=== PATIENT | male | born 1940 | race Caucasian/White ===

== ENCOUNTER → 2017-10-01 10:06 | Outpatient (CLI) | payer MEDICARE, SELFPAY ==
[2017-10-01 12:22] LABS: Anion Gap 7 (5-15); BUN 17 mg/dL (7-18); BUN/Creat Ratio 14.9 RATIO (10-20); Chloride 105 mmol/L (98-107); Creatinine, Serum 1.14 mg/dL (0.70-1.30); EST Glomerular Filtration Rate 67 mL/min (>60); Est Glom Filt Rate - Afr Amer 80 mL/min (>60); Glucose 204 mg/dL (70-110); Potassium 4.1 mmol/L (3.5-5.1); Sodium Level 139 mmol/L (136-145); Thyroid Stim Hormone (TSH) 1.83 uIU/mL (0.358-3.74)
[2017-10-01 12:24] LABS: Absolute Lymphocyte Count 1.22 X10^3/ul (0.83-4.51); Absolute Neutrophil Count 3.7 X10^3/uL (2.0-7.7); Basophil# 0.02 X10^3/uL; Basophil% 0.3 % (0-1); Eosinophil# 0.33 X10^3/uL; Eosinophils% 5.5 % (0-5); Hemoglobin 15.3 g/dl (13.0-16.5); Lymphocyte # 1.22 X10^3/ul (4.0); Lymphocyte % 20.3 % (19-41); Mean Corp Hgb Conc 33.3 g/gl (32-36); Mean Corpuscular Hgb 30.2 pg (27.0-32.0); Mean Corpuscular Volume 90.9 fL (80-94); Mean Platelet Vol. 11.4 fl (6.2-12.0); Monocyte# 0.73 X10^3/uL; Monocyte% 12.2 % (0-10); Neutrophil % 61.7 % (47-70); Platelet Count 221 K/mm3 (150-450); RBC Distribution Width CV 13.1 % (11.6-14.6); RBC Distribution Width SD 43.1 fl (35.1-43.9); Red Blood Count 5.06 M/mm3 (4.6-6.2)
[2017-10-01 12:31] LABS: POSITIVE COUNT NO; POSITIVE DIFFERENTIAL NO; POSITIVE MORPHOLOGY NO
[2017-10-01 12:33] LABS: AST(SGOT) 24 U/L (15-37); Alanine Aminotransfer ALT/SGPT 37 U/L (16-61); Albumin, Serum 3.6 g/dL (3.2-5.0); Alkaline Phosphatase 49 U/L (45-117); Bilirubin, Direct 0.21 mg/dL (0.00-0.30); Cholesterol 117 mg/dL (200); Globulin 3.4 g/dL (2.2-4.2); High Density Lipoprotein 37 mg/dL; Triglycerides 128 mg/dL; Very Low Density Lipoprotein 26 mg/dL (5-40)
== END ==
PROVIDERS: Family Provider Family Medicine; PCP Family Medicine; Visit Provider Internal Medicine Cardiovascular Disease
DX: E78.5 Hyperlipidemia, unspecified (principal); I10 Essential (primary) hypertension; E11.9 Type 2 diabetes mellitus without complications; Z79.899 Other long term (current) drug therapy
CPT/HCPCS: 36415; 80048; 80061; 80076; 84443; 85025

== ENCOUNTER → 2018-04-02 09:17 | Outpatient (CLI) | payer MEDICARE, SELFPAY ==
[2018-04-02 12:27] LABS: AST(SGOT) 24 U/L (15-37); Alanine Aminotransfer ALT/SGPT 27 U/L (16-61); Albumin, Serum 3.5 g/dL (3.2-5.0); Alkaline Phosphatase 43 U/L (45-117); Bilirubin, Direct 0.18 mg/dL (0.00-0.30); Cholesterol 108 mg/dL (200); Globulin 3.3 g/dL (2.2-4.2); High Density Lipoprotein 37 mg/dL; Protein, Total 6.8 g/dL (6.4-8.2); Triglycerides 115 mg/dL; Very Low Density Lipoprotein 23 mg/dL (5-40)
== END ==
PROVIDERS: Family Provider Family Medicine; PCP Family Medicine; Visit Provider Internal Medicine Cardiovascular Disease
DX: E78.5 Hyperlipidemia, unspecified (principal); Z79.899 Other long term (current) drug therapy
CPT/HCPCS: 36415; 80061; 80076

== ENCOUNTER → 2018-06-23 15:38 | Outpatient (CLI) | payer MEDICARE, SELFPAY ==
[2018-06-23 17:42] LABS: Absolute Lymphocyte Count 1.35 X10^3/ul (0.83-4.51); Absolute Neutrophil Count 4.2 X10^3/uL (2.0-7.7); Basophil# 0.01 X10^3/uL; Basophil% 0.2 % (0-1); Eosinophil# 0.19 X10^3/uL; Eosinophils% 2.9 % (0-5); Hematocrit 44.4 % (40-54); Hemoglobin 14.3 g/dl (13.0-16.5); Lymphocyte # 1.35 X10^3/ul (4.0); Lymphocyte % 20.8 % (19-41); Mean Corp Hgb Conc 32.2 g/gl (32-36); Mean Corpuscular Hgb 30.2 pg (27.0-32.0); Mean Corpuscular Volume 93.7 fL (80-94); Mean Platelet Vol. 10.6 fl (6.2-12.0); Monocyte# 0.69 X10^3/uL; Monocyte% 10.6 % (0-10); Neutrophil # 4.24 X10^3/uL (2.7-7.7); Neutrophil % 65.3 % (47-70); Platelet Count 232 K/mm3 (150-450); RBC Distribution Width CV 13.3 % (11.6-14.6); RBC Distribution Width SD 45.6 fl (35.1-43.9); Red Blood Count 4.74 M/mm3 (4.6-6.2); White Blood Count 6.5 K/mm3 (4.4-11.0)
[2018-06-23 17:46] LABS: POSITIVE COUNT NO; POSITIVE DIFFERENTIAL NO; POSITIVE MORPHOLOGY NO
[2018-06-23 18:29] LABS: Anion Gap 7 (5-15); BUN 16 mg/dL (7-18); BUN/Creat Ratio 15.5 RATIO (10-20); Calcium,Total 8.7 mg/dL (8.5-10.1); Chloride 104 mmol/L (98-107); Creatinine, Serum 1.03 mg/dL (0.70-1.30); EST Glomerular Filtration Rate 75 mL/min (>60); Est Glom Filt Rate - Afr Amer 90 mL/min (>60); Glucose 142 mg/dL (74-106); Potassium 4.2 mmol/L (3.5-5.1); Sodium Level 139 mmol/L (136-145)
== END ==
PROVIDERS: Visit Provider Family Medicine
DX: I10 Essential (primary) hypertension (principal); E11.65 Type 2 diabetes mellitus with hyperglycemia
CPT/HCPCS: 36415; 80048; 84443; 85025

== ENCOUNTER → 2019-02-17 | Outpatient (CLI) | payer MEDICARE, SELFPAY ==
[2018-10-20 15:37] VITALS: BMI 32.5
[2019-02-17 12:36] LABS: Absolute Lymphocyte Count 1.13 X10^3/ul (0.83-4.51); Absolute Neutrophil Count 3.6 X10^3/uL (2.0-7.7); Basophil# 0.01 X10^3/uL; Basophil% 0.2 % (0-1); Eosinophil# 0.16 X10^3/uL; Eosinophils% 2.8 % (0-5); Hematocrit 44.3 % (40-54); Lymphocyte # 1.13 X10^3/ul (4.0); Lymphocyte % 20.1 % (19-41); Mean Corp Hgb Conc 33.9 g/gl (32-36); Mean Corpuscular Hgb 30.3 pg (27.0-32.0); Mean Corpuscular Volume 89.5 fL (80-94); Mean Platelet Vol. 10.8 fl (6.2-12.0); Monocyte# 0.75 X10^3/uL; Monocyte% 13.3 % (0-10); Neutrophil # 3.56 X10^3/uL (2.7-7.7); Neutrophil % 63.4 % (47-70); Platelet Count 214 K/mm3 (150-450); RBC Distribution Width CV 13.1 % (11.6-14.6); RBC Distribution Width SD 42.6 fl (35.1-43.9); Red Blood Count 4.95 M/mm3 (4.6-6.2); White Blood Count 5.6 K/mm3 (4.4-11.0)
[2019-02-17 12:44] LABS: POSITIVE COUNT NO; POSITIVE DIFFERENTIAL NO; POSITIVE MORPHOLOGY NO
[2019-02-17 13:03] LABS: AST(SGOT) 29 U/L (15-37); Alanine Aminotransfer ALT/SGPT 33 U/L (16-61); Albumin, Serum 3.6 g/dL (3.2-5.0); Alkaline Phosphatase 48 U/L (45-117); Anion Gap 9 (5-15); BUN 19 mg/dL (7-18); BUN/Creat Ratio 19.5 RATIO (10-20); Bilirubin, Direct 0.17 mg/dL (0.00-0.30); Chloride 104 mmol/L (98-107); Cholesterol 139 mg/dL (200); Creatinine, Serum 0.97 mg/dL (0.70-1.30); EST Glomerular Filtration Rate 80 mL/min (>60); Est Glom Filt Rate - Afr Amer 96 mL/min (>60); Globulin 3.3 g/dL (2.2-4.2); Glucose 191 mg/dL (74-106); High Density Lipoprotein 43 mg/dL; Potassium 4.3 mmol/L (3.5-5.1); Protein, Total 6.9 g/dL (6.4-8.2); Sodium Level 136 mmol/L (136-145); Thyroid Stim Hormone (TSH) 1.83 uIU/mL (0.358-3.74); Triglycerides 119 mg/dL; Very Low Density Lipoprotein 24 mg/dL (5-40)
== END | disposition home or self-care (01) ==
PROVIDERS: Family Provider Family Medicine; PCP Family Medicine; Visit Provider Internal Medicine Cardiovascular Disease
DX: I10 Essential (primary) hypertension (principal); R00.1 Bradycardia, unspecified; E78.5 Hyperlipidemia, unspecified
CPT/HCPCS: 36415; 80048; 80061; 80076; 84443; 85025

== ENCOUNTER 2019-04-05 12:05 | Emergency (ER) | payer MEDICARE, SELFPAY ==
[2018-10-20 15:37] VITALS: BMI 32.5
[2019-04-05 12:05] VITALS: BP 150/69; PULSE 59; RESP 18; TEMP 36.4; O2SAT 94; BMI 33.0
--- NOTE | 2019-04-05 12:38 | RAD_ITS ---
STUDY: X-RAY - LUMBAR SPINE REASON FOR EXAM: Male, 78 years old. Back pain radiating to the right leg, acute onset TECHNIQUE: 3 view(s) of the lumbar spine were obtained. COMPARISON: None FINDINGS: Normal lumbar lordosis. There is no substantial scoliosis. There is a normal alignment of the vertebrae. There is diffuse demineralization with multi-level endplate spondylosis. Mild disc space narrowing at L5-S1 with moderate facet arthropathy noted. There is no demonstrated fracture. There is atherosclerotic calcification of the abdominal aorta without a demonstrated aneurysm. RAD/Lumbar Spine 2 or 3 Views IMPRESSION: 1. Mild degenerative changes. No compression fracture. Electronically Signed: Salvatore Avila MD at 13:10 EDT , Service support ,
--- NOTE | 2019-04-05 12:39 | ED.VIS.GEN ---
History of Present Illness Chief Complaint: Back Informant: Patient Onset: Yesterday Current Severity: Mild Narrative: Study of CABG and see list, basically reports is been very good health yesterday he was carrying a jug of water bending over repetitively to water objects, he began having pain to the right paralumbar back the pain intensified today where he is very stiff and could not really move well he had no direct trauma no abdominal pain no numbness weakness paresthesias, he has had intermittent flareups of back pain related to prior football type injuries that usually resolve, he is on Coumadin, his INR is about 2.3 he is had no GI bleeding no chest pain fever cough no numbness weakness or paresthesias just stiffness related to the back pain Past Medical History - Allergies and Home Meds Allergies/Adverse Reactions: Allergies No Known Allergies Allergy (Verified 04/05/19 12:07) Primary Care Physician: Logan Castillo MD [Primary Care Provider] - Past Medical History: - Smoking Status: Former smoker Review of Systems ROS: - Bridge and as above General: Denies: Chills, Fever, Sweats Eyes: Denies: Visual changes - bilaterally, Diplopia ENT: Denies: Rhinorrhea, Sore throat Cardiovascular: Denies: Chest pain, Palpitations Respiratory: Denies: Dyspnea, Cough, Dyspnea on exertion Gastrointestinal: Denies: Abdominal pain, Nausea, Vomiting, Diarrhea, Melena, Hematochezia Genitourinary: Denies: Dysuria, Hematuria, Frequency Musculoskeletal: Reports: - - He points directly to the right paralumbar musculature area of pain this area is mildly tender midline back is nontender is no real rashes or lesions he has full range of motion of his lower extremities no numbness weeks paresthesias no perineal anesthesia no signs of cauda equina. Denies: Back pain, Extremity Pain Skin: Denies: Rash, Wounds Neurological: Denies: Headache, Weakness, Numbness Physical Exam Vital Signs/Narrative: Vital Signs Temp Pulse Resp BP Pulse Ox 04/05/19 12:05 97.6 F L 59 L 18 150/69 H 94 General: Well nourished, Well developed, No Acute Distress Head: Normocephalic, Atraumatic Eyes: Perrl, EOMI ENT: Moist mucous membranes, No rhinorrhea Neck: Supple, Nontender Cardiovascular: Regular rate, Regular rhythm, No murmurs Respiratory: No distress, CTA bilaterally, Chest nontender Abdomen: Soft, Nontender, Nondistended, Normal bowel sounds Back: Nontender, Normal Inspection, - - See above Extremities: Nontender, No edema Skin: Normal color, No rash Neurological: Alert, Oriented x3, Cranial nerves II-XII grossly intact, Normal Strength, Normal Sensation Psychological: Normal affect, Normal Mood Diagnostic/Tx/Re-eval - Medical Decision Making Given all the above x-rays were obtained Parkman for pain X-rays per radiology show DJD nothing acute discussed all the above the patient was times comfortable going home Tylenol for pain Parkman as a rescue medicine to follow-up as outpatient providers as I explained he might require further management with back specialist etc. return for any signs of cauda equina numbness or paresthesias Home stable Final impression Acute right paralumbar back strain history of CABG Coumadin therapy ED Disposition - Plan for ED Patient: Diagnosis: Back pain Instructions: BACK SPASM, No Trauma, Back Sprain/Strain Prescriptions: Hydrocodone Bitart/Apap 5-325 [Parkman 5MG-325MG] 1 tab PO Q4H PRN PRN 2 Days #10 tab PRN Reason: Pain Prescription Printed Referrals: Logan Castillo MD [Primary Care Provider] -
[2019-04-05] MEDS: HYDROcodone Bitartrate/Apap 5/325 Tablet PO (12:44)
[2019-04-05] MEDS: Ondansetron ODT 4 MG Tablet 8 MG PO (12:44)
[2019-04-05 13:58] VITALS: PULSE 60; RESP 16
== END 2019-04-05 13:58 | disposition home or self-care (01) ==
LOC: ED 12:42
PROVIDERS: Emergency Provider Emergency Medicine; Family Provider Family Medicine; PCP Family Medicine
DX: S39.012A Strain of muscle, fascia and tendon of lower back, initial encounter (principal); Z95.1 Presence of aortocoronary bypass graft; Z79.01 Long term (current) use of anticoagulants; Z87.891 Personal history of nicotine dependence; X50.0XXA Overexertion from strenuous movement or load, initial encounter; Y93.89 Activity, other specified; Y92.007 Garden or yard of unspecified non-institutional (private) residence as the place of occurrence of the external cause; Y99.8 Other external cause status
CPT/HCPCS: 72100; 99283

== ENCOUNTER → 2019-05-05 | Outpatient (CLI) | payer MEDICARE, SELFPAY ==
[2019-04-23 14:17] VITALS: BMI 32.1
--- NOTE | 2019-05-05 11:33 | STRESSREP_ITS ---
Stress Test Report Date: 05-05-19 Procedure: Pharmacologic stress nuclear imaging study Indications: CAD; CABG; hyperlipidemia; hypertension Consent: Per the patient Procedure: The patient underwent pharmacologic (Regadenoson) evaluation with a peak heart rate of 93 beats per minute (65 %predicted maximal heart rate) and a peak blood pressure of 198/94 mmHg. The baseline ECG demonstrated sinus bradycardia. The peak pharmacologic ECG demonstrated no obvious ECG changes. There were no cardiac dysrhythmias pretest, during pharmacologic infusion, or recovery. There was no complaint of chest discomfort during pharmacologic infusion or recovery. The examination was discontinued secondary to completion of protocol. Impression: 1. Pharmacologic (Regadenoson) evaluation 2. Peak pharmacologic ECG with no obvious ECG changes. 3. There were no cardiac dysrhythmias pretest, during pharmacologic infusion, or recovery. 4. Nuclear images pending Myocardial perfusion imaging study: Technique: The patient was injected with 14.8 millicuries of technetium 99m Cardiolite and subsequently rest SPECT Cardiolite nuclear imaging was obtained in the horizontal long, vertical long, and short axis views. The patient underwent pharmacologic (Regadenoson) evaluation with a peak heart rate of 93 beats per minute (65 % percent predicted maximal heart rate) and a peak blood pressure of 198/94 mmHg. The patient was injected with 44.5 millicuries of technetium 99m Cardiolite and subsequently stress SPECT Cardiolite nuclear imaging was obtained in the horizontal long, vertical long, and short axis views. A gated Cardiolite study at peak stress was obtained. Interpretation: Rest and stress SPECT Cardiolite nuclear imaging status post realignment, normalization, and attenuation correction demonstrate relative uniform tracer uptake and myocardial perfusion appearing within normal limits. There is end systolic thickening and brightening. The gated Cardiolite study demonstrates myocardial thickening and inward wall motion. The reported LVEF is 62 %. Impression: 1. Rest and stress SPECT Cardiolite nuclear imaging demonstrate relative un iform tracer uptake and myocardial perfusion appearing within normal limits. 2. The gated Cardiolite study reports an LVEF of 62 %. This note was generated with [employer] software. It may contain incorrect words, spelling, and punctuation that were not noted in checking the note before signing.
== END | disposition home or self-care (01) ==
LOC: CVS 06:45
PROVIDERS: Family Provider Family Medicine; PCP Family Medicine; Referring Provider Physician Assistant Medical; Visit Provider Physician Assistant Medical
DX: I25.10 Atherosclerotic heart disease of native coronary artery without angina pectoris (principal); I10 Essential (primary) hypertension; E78.5 Hyperlipidemia, unspecified
CPT/HCPCS: 78452; 93017; A9500; A4216; J2785

== ENCOUNTER → 2020-02-16 | Outpatient (CLI) | payer MEDICARE, SELFPAY ==
[2020-01-21 13:09] VITALS: BMI 32.1
[2020-02-16 08:59] LABS: AST(SGOT) 31 U/L (15-37); Alanine Aminotransfer ALT/SGPT 32 U/L (16-61); Albumin, Serum 3.6 g/dL (3.2-5.0); Alkaline Phosphatase 48 U/L (45-117); Anion Gap 9 (5-15); BUN 18 mg/dL (7-18); BUN/Creat Ratio 17.8 RATIO (10-20); Bilirubin, Direct 0.22 mg/dL (0.00-0.30); Calcium,Total 8.9 mg/dL (8.5-10.1); Chloride 105 mmol/L (98-107); Cholesterol 122 mg/dL (200); Creatinine, Serum 1.01 mg/dL (0.70-1.30); EST Glomerular Filtration Rate 76 mL/min (>60); Est Glom Filt Rate - Afr Amer 92 mL/min (>60); Globulin 3.4 g/dL (2.2-4.2); Glucose 129 mg/dL (74-106); High Density Lipoprotein 37 mg/dL; Potassium 3.6 mmol/L (3.5-5.1); Sodium Level 141 mmol/L (136-145); Triglycerides 118 mg/dL; Very Low Density Lipoprotein 24 mg/dL (5-40)
== END | disposition home or self-care (01) ==
LOC: LAB 08:09
PROVIDERS: PCP Family Medicine; Referring Provider Internal Medicine Cardiovascular Disease; Visit Provider Internal Medicine Cardiovascular Disease
DX: E78.5 Hyperlipidemia, unspecified (principal); I10 Essential (primary) hypertension; I25.10 Atherosclerotic heart disease of native coronary artery without angina pectoris; Z95.1 Presence of aortocoronary bypass graft
CPT/HCPCS: 36415; 80048; 80061; 80076

== ENCOUNTER → 2020-04-11 09:16 | Outpatient (CLI) | payer MEDICARE, SELFPAY ==
[2020-01-21 13:09] VITALS: BMI 32.1
[2020-04-11 12:53] LABS: Absolute Lymphocyte Count 1.24 X10^3/uL (0.83-4.51); Absolute Neutrophil Count 3.8 X10^3/uL (2.0-7.7); Basophil# 0.03 X10^3/uL; Basophil% 0.5 % (0-1); Eosinophil# 0.21 X10^3/uL; Eosinophils% 3.6 % (0-5); Hematocrit 44.1 % (40-54); Hemoglobin 14.4 g/dL (13.0-16.5); Lymphocyte # 1.24 X10^3/ul (4.0); Lymphocyte % 21.1 % (19-41); Mean Corp Hgb Conc 32.7 g/dL (32-36); Mean Corpuscular Hgb 30.8 pg (27.0-32.0); Mean Corpuscular Volume 94.4 fL (80-94); Mean Platelet Vol. 11.1 fl (6.2-12.0); Monocyte# 0.61 X10^3/uL; Monocyte% 10.4 % (0-10); NRBC Flagged by Analyzer 0 % (0-5); Neutrophil # 3.78 X10^3/uL (2.7-7.7); Neutrophil % 64.1 % (47-70); Platelet Count 252 K/mm3 (150-450); RBC Distribution Width CV 12.8 % (11.6-14.6); Red Blood Count 4.67 M/mm3 (4.6-6.2); White Blood Count 5.9 K/mm3 (4.4-11.0)
[2020-04-11 13:30] LABS: AST(SGOT) 20 U/L (15-37); Alanine Aminotransfer ALT/SGPT 23 U/L (16-61); Albumin, Serum 3.4 g/dL (3.2-5.0); Alkaline Phosphatase 45 U/L (45-117); Anion Gap 5 (5-15); BUN 16 mg/dL (7-18); Calcium,Total 9.1 mg/dL (8.5-10.1); Chloride 107 mmol/L (98-107); EST Glomerular Filtration Rate 77 mL/min (>60); Est Glom Filt Rate - Afr Amer 93 mL/min (>60); Globulin 3.4 g/dL (2.2-4.2); Glucose 133 mg/dL (74-106); Potassium 4.2 mmol/L (3.5-5.1); Protein, Total 6.8 g/dL (6.4-8.2); Sodium Level 140 mmol/L (136-145); Thyroid Stim Hormone (TSH) 1.77 uIU/mL (0.358-3.74)
[2020-04-13 11:52] LABS: Hemoglobin A1c 8.8 % (3.8-5.6)
== END ==
PROVIDERS: PCP Family Medicine; Visit Provider Family Medicine
DX: E11.65 Type 2 diabetes mellitus with hyperglycemia (principal); I10 Essential (primary) hypertension
CPT/HCPCS: 36415; 80053; 83036; 84443; 85025

== ENCOUNTER → 2020-10-14 11:05 | Outpatient (CLI) | payer MEDICARE, SELFPAY ==
[2020-06-13 11:23] VITALS: BMI 32.1
[2020-10-14 15:51] LABS: Vitamin B12 163 pg/mL (211-911)
[2020-10-14 16:00] LABS: AST(SGOT) 18 U/L (15-37); Alanine Aminotransfer ALT/SGPT 25 U/L (16-61); Albumin, Serum 3.4 g/dL (3.2-5.0); Alkaline Phosphatase 60 U/L (45-117); Anion Gap 5 (5-15); BUN 16 mg/dL (7-18); BUN/Creat Ratio 15.8 RATIO (10-20); Chloride 104 mmol/L (98-107); Cholesterol 119 mg/dL (200); Creatinine, Serum 1.01 mg/dL (0.70-1.30); EST Glomerular Filtration Rate 76 mL/min (>60); Est Glom Filt Rate - Afr Amer 92 mL/min (>60); Globulin 3.4 g/dL (2.2-4.2); Glucose 185 mg/dL (74-106); High Density Lipoprotein 40 mg/dL; Potassium 4.3 mmol/L (3.5-5.1); Protein, Total 6.8 g/dL (6.4-8.2); Sodium Level 136 mmol/L (136-145); Thyroid Stim Hormone (TSH) 1.53 uIU/mL (0.358-3.74); Triglycerides 96 mg/dL; Very Low Density Lipoprotein 19 mg/dL (5-40)
== END ==
PROVIDERS: PCP Family Medicine; Visit Provider Family Medicine
DX: I10 Essential (primary) hypertension (principal); E11.65 Type 2 diabetes mellitus with hyperglycemia; F03.90 Unspecified dementia, unspecified severity, without behavioral disturbance, psychotic disturbance, mood disturbance, and anxiety
CPT/HCPCS: 36415; 80053; 80061; 82607; 84443

== ENCOUNTER → 2020-11-04 10:58 | Outpatient (CLI) | payer MEDICARE, SELFPAY ==
[2020-06-13 11:23] VITALS: BMI 32.1
[2020-11-04 15:02] LABS: Prothrombin Time (Protime)PT. 22.4 SECONDS (11.7-14.9)
== END ==
PROVIDERS: PCP Family Medicine; Visit Provider Family Medicine
DX: D68.59 Other primary thrombophilia (principal); I82.409 Acute embolism and thrombosis of unspecified deep veins of unspecified lower extremity
CPT/HCPCS: 36415; 85610

== ENCOUNTER → 2021-08-30 09:33 | Outpatient (CLI) | payer MEDICARE, SELFPAY ==
[2021-08-30 12:24] LABS: Absolute Lymphocyte Count 1.34 X10^3/uL (0.83-4.51); Absolute Neutrophil Count 4.3 X10^3/uL (2.0-7.7); Basophil# 0.04 X10^3/uL; Basophil% 0.6 % (0-1); Hematocrit 44.1 % (40-54); Hemoglobin 14.5 g/dL (13.0-16.5); Lymphocyte # 1.34 X10^3/ul (0.83-4.51); Lymphocyte % 20.4 % (19-41); Mean Corp Hgb Conc 32.9 g/dL (32-36); Mean Corpuscular Hgb 30.7 pg (27.0-32.0); Mean Corpuscular Volume 93.4 fL (80-94); Monocyte# 0.71 X10^3/uL; Monocyte% 10.8 % (0-10); NRBC Flagged by Analyzer 0 % (0-5); Neutrophil # 4.26 X10^3/uL (2.7-7.7); Neutrophil % 64.9 % (47-70); Platelet Count 248 K/mm3 (150-450); RBC Distribution Width CV 12.4 % (11.6-14.6); RBC Distribution Width SD 42.5 fl (35.1-43.9); Red Blood Count 4.72 M/mm3 (4.6-6.2); White Blood Count 6.6 K/mm3 (4.4-11.0)
[2021-08-30 12:41] LABS: Vitamin B12 1633 pg/mL (211-911)
[2021-08-30 12:45] LABS: AST(SGOT) 19 U/L (15-37); Alanine Aminotransfer ALT/SGPT 31 U/L (16-61); Albumin, Serum 3.5 g/dL (3.2-5.0); Alkaline Phosphatase 56 U/L (45-117); Anion Gap 9 (5-15); BUN 17 mg/dL (7-18); BUN/Creat Ratio 17.6 RATIO (10-20); Calcium,Total 8.8 mg/dL (8.5-10.1); Chloride 105 mmol/L (98-107); Cholesterol 132 mg/dL (200); Creatinine, Serum 0.97 mg/dL (0.70-1.30); EST Glomerular Filtration Rate 80 mL/min (>60); Est Glom Filt Rate - Afr Amer 96 mL/min (>60); Globulin 3.6 g/dL (2.2-4.2); Glucose 185 mg/dL (74-106); High Density Lipoprotein 44 mg/dL; Potassium 3.6 mmol/L (3.5-5.1); Protein, Total 7.1 g/dL (6.4-8.2); Sodium Level 140 mmol/L (136-145); Thyroid Stim Hormone (TSH) 1.57 uIU/mL (0.358-3.74); Triglycerides 100 mg/dL; Very Low Density Lipoprotein 20 mg/dL (5-40)
== END ==
PROVIDERS: PCP Family Medicine; Referring Provider Family Medicine; Visit Provider Family Medicine
DX: E11.65 Type 2 diabetes mellitus with hyperglycemia (principal); I10 Essential (primary) hypertension; E53.8 Deficiency of other specified B group vitamins; I25.10 Atherosclerotic heart disease of native coronary artery without angina pectoris; E78.5 Hyperlipidemia, unspecified
CPT/HCPCS: 36415; 80053; 80061; 82607; 84443; 85025

== ENCOUNTER → 2022-11-15 | Outpatient (CLI) | payer MEDICARE, SELFPAY ==
[2022-11-15 12:09] LABS: Absolute Neutrophil Count 3.6 X10^3/uL (2.0-7.7); Basophil# 0.03 X10^3/uL; Basophil% 0.5 % (0-1); Eosinophils% 3.6 % (0-5); Hematocrit 44.1 % (40-54); Hemoglobin 14.1 g/dL (13.0-16.5); Lymphocyte % 19.8 % (19-41); Mean Corpuscular Hgb 30.5 pg (27.0-32.0); Mean Corpuscular Volume 95.2 fL (80-94); Mean Platelet Vol. 10.8 fl (6.2-12.0); Monocyte# 0.67 X10^3/uL; Monocyte% 12.1 % (0-10); NRBC Flagged by Analyzer 0 % (0-5); Neutrophil # 3.55 X10^3/uL (2.7-7.7); Neutrophil % 63.8 % (47-70); Platelet Count 258 K/mm3 (150-450); RBC Distribution Width CV 12.3 % (11.6-14.6); RBC Distribution Width SD 42.9 fl (35.1-43.9); Red Blood Count 4.63 M/mm3 (4.6-6.2); White Blood Count 5.6 K/mm3 (4.4-11.0)
[2022-11-15 12:18] LABS: AST(SGOT) 23 U/L (15-37); Alanine Aminotransfer ALT/SGPT 27 U/L (16-61); Albumin, Serum 3.4 g/dL (3.2-5.0); Alkaline Phosphatase 44 U/L (45-117); Anion Gap 5 (5-15); BUN 18 mg/dL (7-18); BUN/Creat Ratio 17.1 RATIO (10-20); Chloride 101 mmol/L (98-107); Cholesterol 129 mg/dL (200); Creatinine, Serum 1.05 mg/dL (0.70-1.30); EST Glomerular Filtration Rate 72 mL/min (>60); Est Glom Filt Rate - Afr Amer 87 mL/min (>60); Globulin 3.5 g/dL (2.2-4.2); Glucose 184 mg/dL (74-106); High Density Lipoprotein 46 mg/dL; Potassium 4.1 mmol/L (3.5-5.1); Protein, Total 6.9 g/dL (6.4-8.2); Sodium Level 138 mmol/L (136-145); Triglycerides 101 mg/dL; Very Low Density Lipoprotein 20 mg/dL (5-40); Vitamin B12 > 2000 pg/mL (211-911)
[2022-11-15 12:22] LABS: Microalbumin:Creatinine Ratio 79.2 mg/g CRE (<30 mg/g CRE)
== END | disposition home or self-care (01) ==
LOC: BFHLAB 09:09
PROVIDERS: PCP Family Medicine; Referring Provider Family Medicine; Visit Provider Family Medicine
DX: Z00.00 Encounter for general adult medical examination without abnormal findings (principal); E11.9 Type 2 diabetes mellitus without complications; E53.8 Deficiency of other specified B group vitamins; I10 Essential (primary) hypertension
CPT/HCPCS: 36415; 80053; 80061; 82043; 82570; 82607; 85025

== ENCOUNTER → 2023-10-03 | Outpatient (CLI) | payer MEDICARE, SELFPAY ==
[2023-10-03 12:42] LABS: Absolute Lymphocyte Count 1.38 X10^3/uL (0.83-4.51); Absolute Neutrophil Count 4.9 X10^3/uL (2.0-7.7); Basophil# 0.03 X10^3/uL; Basophil% 0.4 % (0-1); Eosinophil# 0.13 X10^3/uL; Eosinophils% 1.8 % (0-5); Hematocrit 48.3 % (40-54); Hemoglobin 15.2 g/dL (13.0-16.5); Lymphocyte # 1.38 X10^3/ul (0.83-4.51); Lymphocyte % 19.4 % (19-41); Mean Corp Hgb Conc 31.5 g/dL (32-36); Mean Corpuscular Hgb 30.3 pg (27.0-32.0); Mean Corpuscular Volume 96.4 fL (80-94); Mean Platelet Vol. 10.5 fl (6.2-12.0); Monocyte# 0.64 X10^3/uL; NRBC Flagged by Analyzer 0 % (0-5); Neutrophil # 4.89 X10^3/uL (2.7-7.7); Neutrophil % 68.8 % (47-70); Platelet Count 253 K/mm3 (150-450); RBC Distribution Width CV 12.9 % (11.6-14.6); Red Blood Count 5.01 M/mm3 (4.6-6.2); White Blood Count 7.1 K/mm3 (4.4-11.0)
[2023-10-03 13:13] LABS: Vitamin D,25 Hydroxy 40.6 ng/mL
[2023-10-03 13:22] LABS: ALB/GLOB Ratio 1.1 RATIO (0.9-2.4); AST(SGOT) 21 U/L (15-37); Alanine Aminotransfer ALT/SGPT 26 U/L (16-61); Albumin, Serum 3.7 g/dL (3.2-5.0); Alkaline Phosphatase 52 U/L (45-117); Anion Gap 4 (5-15); BUN 18 mg/dL (7-18); BUN/Creat Ratio 15.5 RATIO (10-20); Calcium,Total 9.5 mg/dL (8.5-10.1); Chloride 106 mmol/L (98-107); Creatinine, Serum 1.16 mg/dL (0.70-1.30); EST Glomerular Filtration Rate 64 mL/min (>60); Est Glom Filt Rate - Afr Amer 78 mL/min (>60); Free T3 2.2 pg/mL (2.18-3.98); Globulin 3.4 g/dL (2.2-4.2); Glucose 216 mg/dL (74-106); Potassium 4.5 mmol/L (3.5-5.1); Protein, Total 7.1 g/dL (6.4-8.2); Sodium Level 137 mmol/L (136-145); T4 Free Direct 1.02 ng/dL (0.76-1.46); Thyroid Stim Hormone (TSH) 1.51 uIU/mL (0.358-3.74)
== END | disposition home or self-care (01) ==
LOC: LAB 12:06
PROVIDERS: PCP Family Medicine; Referring Provider Physician Assistant Medical; Visit Provider Physician Assistant Medical
DX: E78.5 Hyperlipidemia, unspecified (principal); R53.83 Other fatigue; E55.9 Vitamin D deficiency, unspecified
CPT/HCPCS: 36415; 80053; 82306; 84439; 84443; 84481; 85025

== ENCOUNTER → 2023-10-30 | Outpatient (CLI) | payer MEDICARE, SELFPAY ==
--- OUTSIDE RECORDS SUMMARY | 2023-10-30 06:26 | XMS RPT_ITS | CCD ---
Author Name Unknown Address [address] [place] [address] Organization [facility] Care Team Providers Care Lymphedema Therapist Name Role Phone [employer] Unavailable Gabrielle Ann Unavailable Unavailable Gabrielle Ann Y Unavailable Unavailable Joan ROJAS, Cosme Saleh Unavailable [phone] Gabrielle Ann Unavailable Unavailable Medications Completed/Discontinued Medications Medication Drug Class(es) Dates Sig (Normalized) Sig (Original) aspirin 81 mg oral strip (15 sources) Platelet Aggregation Inhibitor, Nonsteroidal Anti-inflammatory Drug Start: 12-10-2011 take 1 tablet by mouth once daily ECOTRIN LOW STRENGTH 81 MG TBEC One tablet by mouth daily ASPIRIN [id number] Magno Box MD Problems Active Problems Problem Classification Problem Date Documented Date Episodic/Chronic Complication of device; implant or graft (10 sources) Arteriosclerosis of coronary artery bypass graft; Translations: [Atherosclerosis of coronary artery bypass graft(s) without angina pectoris] Onset: 02-01-2011 Resolved: 10-05-2016 02-01-2011 Chronic Coronary atherosclerosis and other heart disease (10 sources) Coronary arteriosclerosis; Translations: [Coronary atherosclerosis] Onset: 02-01-2011 02-01-2011 Chronic Diabetes mellitus without complication (5 sources) Diabetes mellitus; Translations: [Type 2 diabetes mellitus without complications] Onset: 02-01-2011 02-01-2011 Chronic Disorders of lipid metabolism (5 sources) Hyperlipidemia; Translations: [Hyperlipidemia, unspecified] Onset: 02-01-2011 02-01-2011 Chronic Essential hypertension (5 sources) Hypertensive disorder; Translations: [Essential (primary) hypertension] Onset: 02-01-2011 02-01-2011 Chronic Other nutritional; endocrine; and metabolic disorders (16 sources) Body mass index (BMI) 33.0-33.9, adult; Translations: [Body mass index (BMI) 32.0-32.9, adult] Onset: 08-07-2013 02-10-2016 Chronic Other nutritional; endocrine; and metabolic disorders (4 sources) Body mass index (BMI) 32.0-32.9, adult; Translations: [Body mass index (BMI) 32.0-32.9, adult] Onset: 08-07-2013 04-13-2015 Chronic Unclassified (2 sources) Long-term drug therapy; Translations: [Other rat exterminator (current) drug therapy] Onset: 02-01-2011 02-01-2011 Past or Other Problems Problem Classification Problem Date Documented Da te Episodic/Chronic Coronary atherosclerosis and other heart disease (5 sources) Presence of aortocoronary bypass graft; Translations: [Presence of aortocoronary bypass graft] Onset: 02-01-2011 Episodic Other aftercare (3 sources) Other rat exterminator (current) drug therapy; Translations: [Other rat exterminator (current) drug therapy] Onset: 02-01-2011 Episodic Phlebitis; thrombophlebitis and thromboembolism (5 sources) Phlebitis and thrombophlebitis of unspecified deep vessels of unspecified lower extremity; Translations: [Phlebitis and thrombophlebitis of unspecified deep vessels of unspecified lower extremity] Onset: 02-01-2011 Episodic Residual codes; unclassified (8 sources) Family history of stroke; Translations: [FH: Hypertension] 02-22-2014 Episodic Residual codes; unclassified (2 sources) FH: Hypertension; Translations: [Family history of ischemic heart disease and other diseases of the circulatory system] 08-23-2014 Episodic Results Test Name Value Interpretation Reference Range Facil ity Vital Signs Date Time Vital Sign Value Performing Clinician Fachoney hoyty 04-08-2017 09:52-0400 BMI (Body Mass Index) 32.41 kg/m2 Gabrielle DJO [email or web address] Work Phone: 04-08-2017 09:52-0400 BP Diastolic 80 mm[Hg] [facility] Work Phone: 04-08-2017 09:52-0400 BP Systolic 130 mm[Hg] [employer] Work Phone: 04-08-2017 09:52-0400 Height 180.34 cm Harumi DeFinis [facility] Work Phone: 04-08-2017 09:52-0400 Pulse (Heart Rate) 56 /min Harumi DeFinis [facility] Work Phone: 04-08-2017 09:52-0400 Respiratory Rate 20 /min Harumi DeFinis [facility] Work Phone: 04-08-2017 09:52-0400 Weight 105.42 kg Harumi DeFinavi [facility] Work Phone: 10-08-2016 09:03-0500 BMI (Body Mass Index) 32.62 kg/m2 Cosme Franco MD [facility] Work Phone: 10-08-2016 09:03-0500 BP Diastolic 78 mm[Hg] Cosme Franco MD [facility] Work Phone: 10-08-2016 09:03-0500 BP Systolic 124 mm[Hg] Cosme Franco MD [facility] Work Phone: 10-08-2016 09:03-0500 BSA (Body Surface Area) 2.26 m2 Cosme Franco MD [facility] Work Phone: 10-08-2016 09:03-0500 Pulse (Heart Rate) 56 /min [facility] Work Phone: 10-08-2016 09:03-0500 Respiratory Rate 16 /min [facility] Work Phone: 10-08-2016 09:03-0500 Weight 106.1 kg [facility] Work Phone: 02-10-2016 09:20-0400 Heart rate 47 /min [facility] Work Phone: 08-07-2013 14:10-0500 Heart rate 402 ms Cosme Franco MD [facility] Work Phone: 12-10-2011 09:37-0400 Height 180.34 cm Cosme Franco MD [facility] Work Phone: Procedures Date Procedure Procedure Detail Performing Clinician Start: 09-30-2017 End: 10-01-2017 *Hepatic Function Panel Cosme Franco MD Start: 09-30-2017 End: 10-01-2017 Lipid panel [AGGREGATE] Cosme Franco MD Start: 04-08-2017 End: 04-08-2017 Follow Up Appt 6 months Sandra owen PA-C Work Phone: Start: 04-08-2017 End: 04-08-2017 PFM Sandra Bethea PA-C Work Phone: Start: 03-29-2017 End: 03-29-2017 *Hepatic Function Panel Cosme Franco MD Start: 03-29-2017 End: 03-29-2017 Lipid panel [AGGREGATE] Cosme Franco MD Start: 10-08-2016 End: 10-08-2016 Dietary management education, guidance, and counseling Cosme Franco MD Start: 10-08-2016 End: 10-08-2016 *Hepatic Function Panel Cosme Franco MD Start: 10-08-2016 End: 10-08-2016 Follow Up Appt 6 months Cosme Franco MD Start: 10-08-2016 End: 10-08-2016 Lipid panel [AGGREGATE] Cosme Franco MD Start: 10-08-2016 End: 10-08-2016 MMM Cosme Franco MD Start: 06-06-2016 End: 06-06-2016 Follow Up Appt Other Km Dominguez POLYSOMNOGRAPHIC TECHNICIAN-C Start: 06-06-2016 End: 06-06-2016 [address]FM Km Dominguez POLYSOMNOGRAPHIC TECHNICIAN-C Start: 02-10-2016 End: 02-10-2016 *Hepatic Function Panel Sandra owen PA-C Work Phone: Start: 02-10-2016 End: 02-10-2016 Electrocardiogram, complete Sandra Bethea PA-C Work Phone: Start: 02-10-2016 End: 02-10-2016 Follow Up Appt 6 months Sandra owen PA-C Work Phone: Start: 02-10-2016 End: 02-10-2016 Lipid panel [AGGREGATE] Sandra owen PA-C Work Phone: Start: 02-10-2016 End: 05-23-2016 Nuclear stress test -exercise Sandra Bethea PA-C Work Phone: Start: 02-10-2016 End: 02-10-2016 PFM Sandra Bethea PA-C Work Phone: Start: 10-17-2015 End: 02-16-2016 *Hepatic Function Panel Cosme Franco MD Start: 10-17-2015 End: 02-16-2016 Lipid panel [AGGREGATE] Cosme Franco MD Start: 04-13-2015 End: 04-14-2015 Documentation of current medications Cosme Franco MD Start: 04-13-2015 End: 04-13-2015 Follow Up Appt 6 months Cosme Franco MD Start: 04-13-2015 End: 04-13-2015 Follow Up Appt Other Cosme Franco MD Start: 04-13-2015 End: 04-13-2015 MMM Cosme Franco MD Start: 11-22-2014 End: 04-14-2015 *Hepatic Function Panel Cosme Franco MD Start: 11-22-2014 End: 04-14-2015 Lipid panel [AGGREGATE] Cosme Franco MD Start: 08-23-2014 End: 08-23-2014 Follow Up Appt 6 months Sandra owen PA-C Work Phone: Start: 08-23-2014 End: 08-23-2014 PFM Sandra Bethea PA-C Work Phone: Start: 05-25-2014 End: 05-25-2014 *Hepatic Function Panel Cosme Franco MD Start: 05-25-2014 End: 05-25-2014 Lipid panel [AGGREGATE] Cosme Franco MD Start: 02-22-2014 End: 02-22-2014 Follow Up Appt 6 months Cosme Franco MD Start: 02-22-2014 End: 02-22-2014 MMM Cosme Franco MD Start: 01-31-2014 End: 02-22-2014 *Hepatic Function Panel Comse Franco MD Start: 01-31-2014 End: 02-22-2014 Lipid panel [AGGREGATE] Cosme Franco MD Start: 08-07-2013 End: 08-14-2013 *Hepatic Function Panel Cosme Franco MD Start: 08-07-2013 End: 08-07-2013 Follow Up Appt 6 months Cosme Franco MD Start: 08-07-2013 End: 02-22-2014 Lipid panel [AGGREGATE] Cosme Franco MD Start: 08-07-2013 End: 08-07-2013 PFM Cosme Franco MD Start: 08-02-2013 End: 08-17-2013 *Hepatic Function Panel Sandra owen PA-C Work Phone: Start: 08-02-2013 End: 08-17-2013 Lipid panel [AGGREGATE] Sandra owen PA-C Work Phone: Start: 01-14-2013 End: 02-12-2013 *Hepatic Function Panel Cosme Franco MD Start: 01-14-2013 End: 02-12-2013 Follow Up Appt 6 months Cosme Franco MD Start: 01-14-2013 End: 02-12-2013 Lipid panel [AGGREGATE] Cosme Franco MD Start: 01-14-2013 End: 02-12-2013 PFM Cosme Franco MD Start: 09-08-2012 End: 02-12-2013 *Hepatic Function Panel Magno rosen MD Start: 09-08-2012 End: 02-12-2013 Lipid panel [AGGREGATE] Magno rosen MD Start: 06-30-2012 End: 06-30-2012 Electrocardiogram, complete Magno Box MD Start: 06-30-2012 End: 06-30-2012 Follow Up Appt 6 months Magno rosen MD Start: 03-05-2012 End: 03-16-2012 *Hepatic Function Panel Magno rosen MD Start: 03-05-2012 End: 03-16-2012 Lipid panel [AGGREGATE] Magno rosen MD Start: 12-10-2011 End: 12-10-2011 Follow Up Appt 6 months Magno rosen MD Plan of Treatment Date Care Activity Detail Author Start: 12-09-2017 End: 12-09-2017 Appointment Appointment [facility] Work Phone: Start: 09-30-2017 End: 10-01-2017 *Hepatic Function Panel *Hepatic Function Panel [facility] Work Phone: Start: 09-30-2017 End: 10-01-2017 Lipid panel [AGGREGATE] *Lipid Profile CC PCP [facility] Work Phone: Start: 04-08-2017 End: 04-08-2017 Appointment Appointment [facility] Work Phone: Start: 04-08-2017 End: 03-29-2017 *Hepatic Function Panel *Hepatic Function Panel [facility] Work Phone: Start: 04-08-2017 End: 04-08-2017 Follow Up Appt 6 months Follow Up Appt 6 months [facility] Work Phone: Start: 04-08-2017 End: 03-29-2017 Lipid panel [AGGREGATE] *Lipid Profile CC PCP [facility] Work Phone: Start: 04-08-2017 End: 04-08-2017 PFM PFM [facility] Work Phone: Start: 10-08-2016 End: 10-08-2016 *Hepatic Function Panel *Hepatic Function Panel [facility] Work Phone: Start: 10-08-2016 End: 10-08-2016 Follow Up Appt 6 months Follow Up Appt 6 months [facility] Work Phone: Start: 10-08-2016 End: 10-08-2016 Lipid panel [AGGREGATE] *Lipid Profile CC PCP [facility] Work Phone: Start: 10-08-2016 End: 10-08-2016 MMM MMM [facility] Work Phone: Start: 06-06-2016 End: 06-06-2016 Follow Up Appt Other Follow Up Appt Other [facility] Work Phone: Start: 06-06-2016 End: 06-06-2016 PFM PFM [facility] Work Phone: Start: 02-10-2016 End: 02-10-2016 *Hepatic Function Panel *Hepatic Function Panel [facility] Work Phone: Start: 02-10-2016 End: 02-10-2016 Electrocardiogram, complete EKG (In office) [facility] Work Phone: Start: 02-10-2016 End: 02-10-2016 Follow Up Appt 6 months Follow Up Appt 6 months [facility] Work Phone: Start: 02-10-2016 End: 02-10-2016 Lipid panel [AGGREGATE] *Lipid Profile CC PCP [facility] Work Phone: Start: 02-10-2016 End: 02-10-2016 Nuclear stress test -exercise Nuclear stress test -exercise [facility] Work Phone: Start: 02-10-2016 End: 02-10-2016 PFM PFM [facility] Work Phone: Start: 10-17-2015 End: 02-16-2016 *Hepatic Function Panel *Hepatic Function Panel [facility] Work Phone: Start: 10-17-2015 End: 02-16-2016 Lipid panel [AGGREGATE] *Lipid Profile CC PCP [facility] Work Phone: Start: 04-13-2015 End: 04-13-2015 Follow Up Appt 6 months Follow Up Appt 6 months [facility] Work Phone: Start: 04-13-2015 End: 04-13-2015 Follow Up Appt Other Follow Up Appt Other [facility] Work Phone: Start: 04-13-2015 End: 04-13-2015 MMM MMM [facility] Work Phone: Start: 11-22-2014 End: 04-14-2015 *Hepatic Function Panel *Hepatic Function Panel [facility] Work Phone: Start: 11-22-2014 End: 04-14-2015 Lipid panel [AGGREGATE] *Lipid Profile CC PCP [facility] Work Phone: Start: 08-23-2014 End: 08-23-2014 Follow Up Appt 6 months Follow Up Appt 6 months [facility] Work Phone: Start: 08-23-2014 End: 08-23-2014 PFM PFM [facility] Work Phone: Start: 05-25-2014 End: 05-25-2014 *Hepatic Function Panel *Hepatic Function Panel [facility] Work Phone: Start: 05-25-2014 End: 05-25-2014 Lipid panel [AGGREGATE] *Lipid Profile CC PCP [facility] Work Phone: Start: 02-22-2014 End: 02-22-2014 Follow Up Appt 6 months Follow Up Appt 6 months [facility] Work Phone: Start: 02-22-2014 End: 02-22-2014 MMM MMM [facility] Work Phone: Start: 01-31-2014 End: 02-22-2014 *Hepatic Function Panel *Hepatic Function Panel [facility] Work Phone: Start: 01-31-2014 End: 02-22-2014 Lipid panel [AGGREGATE] *Lipid Profile CC PCP [facility] Work Phone: Start: 08-07-2013 End: 08-14-2013 *Hepatic Function Panel *Hepatic Function Panel [facility] Work Phone: Start: 08-07-2013 End: 02-22-2014 Electrocardiogram, complete EKG (In office) [facility] Work Phone: Start: 08-07-2013 End: 08-07-2013 Follow Up Appt 6 months Follow Up Appt 6 months [facility] Work Phone: Start: 08-07-2013 End: 08-14-2013 Lipid panel [AGGREGATE] *Lipid Profile CC PCP [facility] Work Phone: Start: 08-07-2013 End: 08-07-2013 PFM PFM [facility] Work Phone: Start: 08-02-2013 End: 08-17-2013 *Hepatic Function Panel *Hepatic Function Panel [facility] Work Phone: Start: 08-02-2013 End: 08-17-2013 Lipid panel [AGGREGATE] *Lipid Profile CC PCP [facility] Work Phone: Start: 01-14-2013 End: 02-12-2013 *Hepatic Function Panel *Hepatic Function Panel [facility] Work Phone: Start: 01-14-2013 End: 02-12-2013 Follow Up Appt 6 months Follow Up Appt 6 months [facility] Work Phone: Start: 01-14-2013 End: 02-12-2013 Lipid panel [AGGREGATE] *Lipid Profile [facility] Work Phone: Start: 01-14-2013 End: 02-12-2013 PFM PFM [facility] Work Phone: Start: 09-08-2012 End: 02-12-2013 *Hepatic Function Panel *Hepatic Function Panel [facility] Work Phone: Start: 09-08-2012 End: 02-12-2013 Lipid panel [AGGREGATE] *Lipid Profile [facility] Work Phone: Start: 06-30-2012 End: 06-30-2012 Electrocardiogram, complete EKG (In office) [facility] Work Phone: Start: 06-30-2012 End: 06-30-2012 Follow Up Appt 6 months Follow Up Appt 6 months [facility] Work Phone: Start: 03-05-2012 End: 03-16-2012 *Hepatic Function Panel *Hepatic Function Panel [facility] Work Phone: Start: 03-05-2012 End: 03-16-2012 Lipid panel [AGGREGATE] *Lipid Profile [facility] Work Phone: Start: 12-10-2011 End: 12-10-2011 Follow Up Appt 6 months Follow Up Appt 6 months [facility] Work Phone: Patient Education [facility] Work Phone: Additional Source Comments FOR RECORDS PERTAINING TO PATIENTS WHO ARE OR HAVE BEEN ENROLLED IN A CHEMICAL DEPENDENCY/SUBSTANCEABUSE PROGRAM, SOME INFORMATION MAY BE OMITTED. This clinical summary was aggregated from multiple sources. Caution should be exercised in using it in the provision of clinical care. This summary normalizes information from multiple sources, and as a consequence, information in this document may materially change the coding, format and clinical context of patient data. In addition, data may be omitted in some cases. CLINICAL DECISIONS SHOULD BE BASED ON THE PRIMARY CLINICAL RECORDS. [facility]. provides no warranty or guarantee of the accuracy or completeness of information in this document.
--- NOTE | 2023-10-30 17:39 | STRESSREP_ITS ---
Stress Test Report Pharmacologic myocardial perfusion stress test. 83-year-old man with a history of atherosclerotic cardiovascular disease and fatigue Resting EKG demonstrates sinus bradycardia with a rate of 52 bpm. Resting blood pressure is 160/80 mmHg. 0.4 mg of regadenoson was infused per usual protocol followed by rapid intravenous saline flush injection. Continuous EKG monitoring was performed. The maximum heart rate was 89 bpm which was 64% of max impacted heart rate the maximum workload was 1 metabolic equivalent. At rest there were no ST or T wave changes noted to suggest ischemia and at peak infusion nonspecific ST changes were noted which did not meet the criteria for ischemia. No clinical angina is noted. The final blood pressure was 138/80 mmHg. Myocardial perfusion protocol. 14.1 mCi of technetium 99m sestamibi was injected at rest. 0.4 mg of regadenoson was infused per usual protocol. At peak infusion 43.8 mCi of techne tium 99m sestamibi was injected stress images were obtained stress and rest images were reconstructed and compared in the short axis vertical long and horizontal long axis. Gated images were also obtained. Perfusion SPECT analysis: Review of the stress images demonstrate normal uptake of tracer noted in all areas of the myocardium. The resting images similar demonstrated normal uptake of tracer noted in all areas of the myocardium. No areas of reversibility are noted to suggest ischemia and no previous infarct is noted. Gated SPECT analysis: The gated ejection fraction is 64%. Conclusion: Normal pharmacologic myocardial perfusion stress test. Preserved ejection fraction.
== END | disposition home or self-care (01) ==
PROVIDERS: PCP Family Medicine; Referring Provider Physician Assistant Medical; Visit Provider Physician Assistant Medical
DX: I25.10 Atherosclerotic heart disease of native coronary artery without angina pectoris (principal)
CPT/HCPCS: 78452; 93017; A9500; A4216; J2785

== ENCOUNTER → 2023-11-11 | Outpatient (CLI) | payer MEDICARE, SELFPAY ==
--- OUTSIDE RECORDS SUMMARY | 2023-11-11 10:13 | XMS RPT_ITS | CCD ---
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 Role Phone [employer] Unavailable Gabrielle Ann Unavailable Unavailable Gabrielle Ann Y Unavailable Unavailable Joan ROJAS, Cosme Saleh Unavailable [phone] Gabrielle Ann Unavailable Unavailable Medications Completed/Discontinued Medications Medication Drug Class(es) Dates Sig (Normalized) Sig (Original) aspirin 81 mg oral strip (15 sources) Platelet Aggregation Inhibitor, Nonsteroidal Anti-inflammatory Drug Start: 12-10-2011 take 1 tablet by mouth once daily ECOTRIN LOW STRENGTH 81 MG TBEC One tablet by mouth daily ASPIRIN [id number] Magno Box MD Problems Active Problems Problem [...] (2 sources) Long-term drug therapy; Translations: [Other jail (current) drug therapy] Onset: 02-01-2011 02-01-2011 Past or Other Problems Problem Classification Problem Date Documented Da te Episodic/Chronic Coronary atherosclerosis and other heart disease (5 sources) Presence of aortocoronary bypass graft; Translations: [Presence of aortocoronary bypass graft] Onset: 02-01-2011 Episodic Other aftercare (3 sources) Other director radio news (current) drug therapy; Translations: [Other director radio news (current) drug therapy] Onset: 02-01-2011 Episodic Phlebitis; [...] BMI (Body Mass Index) 32.41 kg/m2 Gabrielle Knowledge [facility] Work Phone: 04-08-2017 09:52-0400 BP Diastolic 80 mm[Hg] [facility] Work Phone: 04-08-2017 09:52-0400 BP Systolic 130 mm[Hg] [facility] Work Phone: 04-08-2017 09:52-0400 Height 180.34 cm Harumi DeFinis [facility] Work Phone: 04-08-2017 09:52-0400 Pulse (Heart Rate) 56 /min Harumi DeFinis [facility] Work Phone: 04-08-2017 09:52-0400 Respiratory Rate 20 /min Harumi DeFinis [facility] Work Phone: 04-08-2017 09:52-0400 Weight 105.42 kg Harumi DeFinavi [facility] Work Phone: 10-08-2016 09:03-0500 BMI (Body Mass Index) 32.62 kg/m2 Cosme Franco MD [facility] Work Phone: 10-08-2016 09:03-0500 BP Diastolic 78 mm[Hg] Cosme Franco MD [facility] Work Phone: 10-08-2016 09:03-0500 BP Systolic 124 mm[Hg] Cosme Franco MD [facility] Work Phone: 10-08-2016 09:03-0500 BSA [...] Heart rate 402 ms Cosme Franco MD [facility] Work Phone: 12-10-2011 09:37-0400 Height 180.34 cm Cosme Franco MD [facility] Work Phone: Procedures Date Procedure [...] 06-06-2016 Follow Up Appt Other 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 Start: 06-06-2016 End: 06-06-2016 PFM 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 Start: 02-10-2016 End: 02-10-2016 *Hepatic Function Panel [...] Start: 01-31-2014 End: 02-22-2014 *Hepatic Function Panel Cosme Frnaco MD Start: 01-31-2014 End: 02-22-2014 Lipid panel [...] End: 12-10-2011 Follow Up Appt 6 months Mgano rosen MD Plan of Treatment Date Care Activity Detail Author Start: 12-09-2017 End: 12-09-2017 Appointment Appointment [facility] Work Phone: Start: 09-30-2017 End: 10-01-2017 *Hepatic Function Panel *Hepatic Function Panel [facility] Work Phone: Start: 09-30-2017 End: 10-01-2017 Lipid panel [AGGREGATE] *Lipid Profile CC PCP [facility] Work Phone: Start: 04-08-2017 End: 04-08-2017 Appointment Appointment [facility] Work Phone: Start: 04-08-2017 End: 03-29-2017 *Hepatic Function Panel *Hepatic Function Panel [facility] Work Phone: Start: 04-08-2017 End: 04-08-2017 Follow Up Appt 6 months Follow Up Appt 6 months [facility] Work Phone: Start: 04-08-2017 End: 03-29-2017 Lipid panel [AGGREGATE] *Lipid Profile CC PCP [facility] Work Phone: Start: 04-08-2017 End: 04-08-2017 PFM PFM [facility] Work Phone: Start: 10-08-2016 End: 10-08-2016 *Hepatic Function Panel *Hepatic Function Panel [facility] Work Phone: Start: 10-08-2016 End: 10-08-2016 Follow Up Appt 6 months Follow Up Appt 6 months [facility] Work Phone: Start: 10-08-2016 End: 10-08-2016 Lipid panel [AGGREGATE] *Lipid Profile CC PCP [facility] Work Phone: Start: 10-08-2016 End: 10-08-2016 MMM MMM [facility] Work Phone: Start: 06-06-2016 End: 06-06-2016 Follow Up Appt Other Follow Up Appt Other [facility] Work Phone: Start: 06-06-2016 End: 06-06-2016 PFM PFM [facility] Work Phone: Start: 02-10-2016 End: 02-10-2016 *Hepatic Function Panel *Hepatic Function Panel [facility] Work Phone: Start: 02-10-2016 End: 02-10-2016 Electrocardiogram, complete EKG (In office) [facility] Work Phone: Start: 02-10-2016 End: 02-10-2016 Follow Up Appt 6 months Follow Up Appt 6 months [facility] Work Phone: Start: 02-10-2016 End: 02-10-2016 Lipid panel [AGGREGATE] *Lipid Profile CC PCP [facility] Work Phone: Start: 02-10-2016 End: 02-10-2016 Nuclear stress test -exercise Nuclear stress test -exercise [facility] Work Phone: Start: 02-10-2016 End: 02-10-2016 PFM PFM [facility] Work Phone: Start: 10-17-2015 End: 02-16-2016 *Hepatic Function Panel *Hepatic Function Panel [facility] Work Phone: Start: 10-17-2015 End: 02-16-2016 Lipid panel [AGGREGATE] *Lipid Profile CC PCP [facility] Work Phone: Start: 04-13-2015 End: 04-13-2015 Follow Up Appt 6 months Follow Up Appt 6 months [facility] Work Phone: Start: 04-13-2015 End: 04-13-2015 Follow Up Appt Other Follow Up Appt Other [facility] Work Phone: Start: 04-13-2015 End: 04-13-2015 MMM MMM [facility] Work Phone: Start: 11-22-2014 End: 04-14-2015 *Hepatic Function Panel *Hepatic Function Panel [facility] Work Phone: Start: 11-22-2014 End: 04-14-2015 Lipid panel [AGGREGATE] *Lipid Profile CC PCP [facility] Work Phone: Start: 08-23-2014 End: 08-23-2014 Follow Up Appt 6 months Follow Up Appt 6 months [facility] Work Phone: Start: 08-23-2014 End: 08-23-2014 PFM PFM [facility] Work Phone: Start: 05-25-2014 End: 05-25-2014 *Hepatic Function Panel *Hepatic Function Panel [facility] Work Phone: Start: 05-25-2014 End: 05-25-2014 Lipid panel [AGGREGATE] *Lipid Profile CC PCP [facility] Work Phone: Start: 02-22-2014 End: 02-22-2014 Follow Up Appt 6 months Follow Up Appt 6 months [facility] Work Phone: Start: 02-22-2014 End: 02-22-2014 MMM MMM [facility] Work Phone: Start: 01-31-2014 End: 02-22-2014 *Hepatic Function Panel *Hepatic Function Panel [facility] Work Phone: Start: 01-31-2014 End: 02-22-2014 Lipid panel [AGGREGATE] *Lipid Profile CC PCP [facility] Work Phone: Start: 08-07-2013 End: 08-14-2013 *Hepatic Function Panel *Hepatic Function Panel [facility] [...] Phone: Start: 08-07-2013 End: 08-07-2013 PFM PFM [facility] Work Phone: Start: 08-02-2013 End: 08-17-2013 *Hepatic Function Panel *Hepatic Function Panel [facility] Work Phone: Start: 08-02-2013 End: 08-17-2013 Lipid panel [AGGREGATE] *Lipid Profile CC PCP [facility] Work Phone: Start: 01-14-2013 End: 02-12-2013 *Hepatic Function Panel *Hepatic Function Panel [facility] Work Phone: Start: 01-14-2013 End: 02-12-2013 Follow Up Appt 6 months Follow Up Appt 6 months [facility] Work Phone: Start: 01-14-2013 End: 02-12-2013 Lipid panel [AGGREGATE] *Lipid Profile [facility] Work Phone: Start: 01-14-2013 End: 02-12-2013 PFM PFM [facility] Work Phone: Start: 09-08-2012 End: 02-12-2013 *Hepatic Function Panel *Hepatic Function Panel [facility] Work Phone: Start: 09-08-2012 End: 02-12-2013 Lipid panel [AGGREGATE] *Lipid Profile [facility] Work Phone: Start: 06-30-2012 End: 06-30-2012 Electrocardiogram, complete EKG (In office) [facility] Work Phone: Start: 06-30-2012 End: 06-30-2012 Follow Up Appt 6 months Follow Up Appt 6 months [facility] Work Phone: Start: 03-05-2012 End: 03-16-2012 *Hepatic Function Panel *Hepatic Function Panel [facility] Work Phone: Start: 03-05-2012 End: 03-16-2012 Lipid panel [AGGREGATE] *Lipid Profile [facility] Work Phone: Start: 12-10-2011 [...] BE BASED ON THE PRIMARY CLINICAL RECORDS. [facility]. provides no warranty or guarantee of the accuracy or completeness of information in this document.
[2023-11-11 12:38] LABS: Absolute Lymphocyte Count 1.51 X10^3/uL (0.83-4.51); Absolute Neutrophil Count 3.5 X10^3/uL (2.0-7.7); Basophil# 0.03 X10^3/uL; Basophil% 0.5 % (0-1); Hematocrit 47.3 % (40-54); Hemoglobin 15.1 g/dL (13.0-16.5); Lymphocyte # 1.51 X10^3/ul (0.83-4.51); Lymphocyte % 25.1 % (19-41); Mean Corp Hgb Conc 31.9 g/dL (32-36); Mean Corpuscular Hgb 30.8 pg (27.0-32.0); Mean Corpuscular Volume 96.5 fL (80-94); Mean Platelet Vol. 10.8 fl (6.2-12.0); Monocyte# 0.63 X10^3/uL; Monocyte% 10.5 % (0-10); NRBC Flagged by Analyzer 0 % (0-5); Neutrophil # 3.53 X10^3/uL (2.7-7.7); Neutrophil % 58.7 % (47-70); Platelet Count 242 K/mm3 (150-450); RBC Distribution Width CV 13.1 % (11.6-14.6); RBC Distribution Width SD 46.5 fl (35.1-43.9)
[2023-11-11 12:57] LABS: Vitamin B12 > 2000 pg/mL (211-911)
[2023-11-11 13:22] LABS: AST(SGOT) 18 U/L (15-37); Alanine Aminotransfer ALT/SGPT 25 U/L (16-61); Albumin, Serum 3.4 g/dL (3.2-5.0); Alkaline Phosphatase 44 U/L (45-117); Anion Gap 6 (5-15); BUN 16 mg/dL (7-18); BUN/Creat Ratio 15.1 RATIO (10-20); Calcium,Total 9.3 mg/dL (8.5-10.1); Chloride 106 mmol/L (98-107); Cholesterol 124 mg/dL (200); Creatinine, Serum 1.06 mg/dL (0.70-1.30); EST Glomerular Filtration Rate 71 mL/min (>60); Est Glom Filt Rate - Afr Amer 86 mL/min (>60); Globulin 3.3 g/dL (2.2-4.2); Glucose 128 mg/dL (74-106); High Density Lipoprotein 49 mg/dL; Potassium 4.1 mmol/L (3.5-5.1); Protein, Total 6.7 g/dL (6.4-8.2); Sodium Level 140 mmol/L (136-145); Triglycerides 104 mg/dL; Very Low Density Lipoprotein 21 mg/dL (5-40)
[2023-11-11 13:47] LABS: Hemoglobin A1c 8.2 % (3.8-5.6)
[2023-11-11 13:48] LABS: Microalbumin,Random Urine 41.7 mg/L (NO RANGE EST.); Microalbumin:Creatinine Ratio 42.8 mg/g CRE (<30 mg/g CRE)
== END | disposition home or self-care (01) ==
LOC: BFHLAB 09:51
PROVIDERS: PCP Family Medicine; Visit Provider Family Medicine
DX: Z00.00 Encounter for general adult medical examination without abnormal findings (principal); E11.9 Type 2 diabetes mellitus without complications; E53.8 Deficiency of other specified B group vitamins; I10 Essential (primary) hypertension
CPT/HCPCS: 36415; 80053; 80061; 82043; 82570; 82607; 83036; 85025

== ENCOUNTER → 2024-08-21 | Outpatient (CLI) | payer MEDICARE, SELFPAY ==
--- NOTE | 2024-08-21 15:41 | RAD_ITS ---
EXAM: XR LUMBOSACRAL SPINE, 4 OR 5 VIEWS CLINICAL INDICATION: BACK PAIN TECHNIQUE: Frontal, lateral and bilateral oblique views of the lumbar spine. COMPARISON: Plain film lumbar spine 04/05/2019 FINDINGS: VERTEBRAE: Diffuse facet joint hypertrophy. Preserved vertebral body height. No fracture. No spondylolisthesis. Preservation of the normal lumbar lordosis. DISC SPACES: Degenerative changes of the intervertebral discs. GASTROINTESTINAL TRACT: Unremarkable as visualized. Included bowel gas pattern is non-obstructive. RAD/L/S Spine Min 4 Views IMPRESSION: 1. No acute abnormalities identified involving the lumbar spine. 2. Degenerative changes. Electronically Signed: Lowell Ayala MD at 6:02 EST ,
== END | disposition home or self-care (01) ==
LOC: MTRAD 15:40
PROVIDERS: PCP Family Medicine; Referring Provider Family Medicine; Visit Provider Family Medicine
DX: M54.9 Dorsalgia, unspecified (principal)
CPT/HCPCS: 72110

== ENCOUNTER 2024-09-27 11:52 | Emergency (ER) | payer MEDICARE, SELFPAY ==
[2024-09-27 11:56] VITALS: BP 124/59; PULSE 65; RESP 16; TEMP 36.4; O2SAT 96; BMI 29.0
--- NOTE | 2024-09-27 12:00 | CT_ITS ---
EXAM: CT CERVICAL SPINE WITHOUT INTRAVENOUS CONTRAST CLINICAL INDICATION: fall TECHNIQUE: Helically acquired images were obtained of the cervical spine without intravenous contrast. 2D reformatted images were reviewed. This CT exam was performed using one or more of the following dose reduction techniques: automated exposure control, adjustment of the mA and/or kV according to patient size, and/or use of iterative reconstruction technique. RADIATION DOSE: CTDIvol = 24.27 mGy, DLP = 595.62 mGy-cm COMPARISON: No relevant prior studies available. FINDINGS: VERTEBRAE: Minimal degenerative anterolisthesis of C7 on T1 and T1 on T2. No fracture. No discrete lytic or blastic abnormality. DISCS/SPINAL CANAL/NEURAL FORAMINA: Unremarkable. Disc heights are preserved. No critical stenosis. SOFT TISSUES: Unremarkable. No prevertebral soft tissue swelling. LYMPH NODES: Unremarkable. No cervical adenopathy. LUNG APICES: Unremarkable as visualized. Clear. CT/Spine Cervical without Contras IMPRESSION: 1. No acute fracture of the cervical spine, craniocervical junction and cervicothoracic junction. 2. Minimal degenerative retrolisthesis of C7 on T1 and T1 on T2. Electronically Signed: Thanh Cardona MD at 13:10 EST ,
--- NOTE | 2024-09-27 12:00 | CT_ITS ---
EXAM: CT HEAD WITHOUT INTRAVENOUS CONTRAST CLINICAL INDICATION: head injury TECHNIQUE: Multiple axial images were obtained of the head without intravenous contrast. This CT exam was performed using one or more of the following dose reduction techniques: automated exposure control, adjustment of the mA and/or kV according to patient size, and/or use of iterative reconstruction technique. RADIATION DOSE: CTDIvol = 44.99 mGy, DLP = 863.60 mGy-cm COMPARISON: No relevant prior studies available. FINDINGS: BRAIN AND EXTRA-AXIAL SPACES: Hypodensities in the anterior and posterior periventricular white matter are chronic white matter ischemic changes. No intra- or extra-axial hemorrhage. No intracranial mass or mass effect. Posterior fossa structures are unremarkable. No hydrocephalus. Basal cisterns are patent. BONES/JOINTS: Unremarkable. No discrete lytic or blastic abnormalities. SINUSES: Unremarkable as visualized. Clear. MASTOID AIR CELLS: Unremarkable. Clear. ORBITS: Visualized globes, extraocular muscles, optic nerves and retrobulbar fat appear unremarkable. CT/Brain/Head without Contrast IMPRESSION: 1. No acute intracranial abnormalities. 2. Chronic white matter ischemic changes. Electronically Signed: Thanh Cardona MD at 13:01 EST ,
--- NOTE | 2024-09-27 12:01 | EKG12_ITS ---
Test Reason : SYNCOPE Blood Pressure : */* mmHG Vent. Rate : 75 BPM Atrial Rate : 75 BPM P-R Int : 176 ms QRS Dur : 84 ms QT Int : 390 ms P-R-T Axes : 48 -38 47 degrees QTcB Int : 435 ms Normal sinus rhythm Left axis deviation Abnormal ECG Confirmed by GILDARDO ROJAS, CHARLES ([id number]), video tape editor JORGE A ORTA ([id number]) on 09/29/2024 6:16:57 AM Referred By: Confirmed By: CHARLES EWING MD
--- NOTE | 2024-09-27 12:11 | EX.ED.DYSGE1 ---
HPI <RAAD Sandoval - Last Filed: 09/27/24 15:22> History of Present Illness Chief Complaint: Syncope Narrative Narrative: 84-year-old female with PMH of HTN, HLD, DM2, CABG, DVT on warfarin presents after syncopal episode. 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 He states he remembers lying on the ground and felt nauseated and vomited in his mouth. He did not think he fully passed out but bystanders thought he did for a few moments. He was able to get up with assistance and went to the restroom. He was brought in by EMS for evaluation. He states he had breakfast this morning and felt fine. He denies having any headache, chest pain, shortness of breath, abdominal or back pain. PFSH <RAAD Sandoval - Last Filed: 09/27/24 15:22> [facility] Medical History (Updated 09/27/24 @ 15:22 by RAAD Sandoval) Type 2 diabetes mellitus Essential hypertension Atherosclerotic heart disease of [place] coronary artery without angina pectoris Phlebitis and thrombophlebitis of unspecified deep vessels of unspecified lower extremity Hyperlipidemia Home Medications ?Medication ?Instructions ?Recorded ?Last Taken ?Type aspirin 81 mg tablet,delayed 81 mg PO QDAY 12/10/17 Unknown History release (Adult Low Dose Aspirin) atorvastatin 80 mg tablet 80 mg PO QDAY 12/10/17 Unknown History isosorbide mononitrate 30 mg 30 mg PO QDAY 12/10/17 Unknown History tablet,extended release 24 hr nitroglycerin 0.4 mg sublingual 0.4 mg sublingual Q5M PRN 12/10/17 Unknown History tablet warfarin 10 mg tablet (Coumadin) 5 mg PO DAILY 10/20/18 Unknown History metformin 500 mg tablet 500 mg PO .COMPLEX 06/13/20 Unknown History lisinopril 20 mg tablet 20 mg PO DAILY #90 tabs 04/29/23 Unknown Rx glimepiride 2 mg tablet 2 mg PO DAILY 10/03/23 Unknown History cholecalciferol (vitamin D3) 25 25 mcg PO QDAY 09/18/24 Unknown History mcg (1,000 unit) capsule donepezil 10 mg tablet mg PO DAILY 09/18/24 Unknown History dulaglutide 0.75 mg/0.5 mL mg subcut QWEEK 09/18/24 Unknown History subcutaneous pen injector (Trulicity) ferrous sulfate 325 mg (65 mg 325 mg PO QDAY 09/18/24 Unknown History iron) tablet mecobalamin (vitamin B12) 2,500 mcg PO DAILY 09/18/24 Unknown History mcg chewable tablet Allergy/AdvReac Type Severity Reaction Status Date / Time No Known Allergies Allergy Verified 09/27/24 12:00 Family History Father CVA (cerebral vascular accident) Brother CVA (cerebral vascular accident) Hypertension Sister CAD (coronary artery disease) Diabetes Hypertension Surgical History History of tonsillectomy Aortocoronary bypass status (~12/1998) Social History Smoking Status: Former smoker how long ago did patient quit smokin alcohol intake: never substance use type: does not use caffeine: Yes ROS <RAAD Sandoval - Last Filed: 09/27/24 15:22> ROS ED ROS Narrative Constitutional: Negative for fever, chills, malaise. CVS: Positive for syncope. Negative for palpitations, chest pain. Respiratory: Negative for shortness of breath, cough, orthopnea. GI: Negative for abdominal pain, diarrhea, melena, hematochezia. : Negative for dysuria, hematuria or frequency. Neuro: Negative for headache, motor/sensory dysfunction. EXAM <RAAD Sandoval - Last Filed: 09/27/24 15:22> Physical Exam Narrative Exam Narrative: CONST: Patient sitting in no acute distress. EYES: Normal inspection. PERRL, EOMI ENT: Tiny nasal abrasion, no deformity or crepitus. No raccoon eyes or Flynn sign, no nasal septal hematoma or epistaxis. No hemotympanum, no CSF otorrhea or rhinorrhea. NECK: Normal inspection. No midline spinal tenderness, no step off or crepitus. RESP: No respiratory distress, CTAB. CVS: Regular rate and rhythm, no murmur, no gallop. ABD: Soft and nontender, no guarding or rebound, nondistended. SKIN: Color normal, no rash, warm, dry, intact. EXTREMITIES: Normal appearance, no pedal edema. NEURO: Alert and answering questions appropriately. CN II through XII intact, they symmetric, moving all extremities. PSYCH: Normal affect. Const Vital Signs: 09/27/24 11:56 09/27/24 12:01 09/27/24 13:54 Temperature 97.6 F L Temperature Source Oral Pulse Rate 65 69 Respiratory Rate 16 17 Respiratory Effort Normal Non-Labored Respiratory Pattern Normal Blood Pressure 124/59 H 154/70 H Blood Pressure Mean 80 98 Pulse Ox 96 95 Oxygen Delivery Method Room Air Room Air 09/27/24 15:21 Temperature 97.6 F L Temperature Source Pulse Rate 83 Respiratory Rate 16 Respiratory Effort Respiratory Pattern Blood Pressure 142/79 H Blood Pressure Mean 100 Pulse Ox 99 Oxygen Delivery Method <Dr. Estevan Dominguez DO - Last Filed: 09/28/24 01:45> Physical Exam Const Vital Signs: 09/27/24 11:56 09/27/24 12:01 09/27/24 13:54 Temperature 97.6 F L Temperature Source Oral Pulse Rate 65 69 Respiratory Rate 16 17 Respiratory Effort Normal Non-Labored Respiratory Pattern Normal Blood Pressure 124/59 H 154/70 H Blood Pressure Mean 80 98 Pulse Ox 96 95 Oxygen Delivery Method Room Air Room Air 09/27/24 15:21 Temperature 97.6 F L Temperature Source Pulse Rate 83 Respiratory Rate 16 Respiratory Effort Respiratory Pattern Blood Pressure 142/79 H Blood Pressure Mean 100 Pulse Ox 99 Oxygen Delivery Method [facility] <RAAD Sandoval - Last Filed: 09/27/24 15:22> [facility] Narrative Medical decision making narrative: History gathered from: Patient, EMS Differential includes but not limited to orthostatic hypotension, cardiac arrhythmia, ACS, PE 84-year-old male was standing and felt lightheaded and then had a brief syncopal episode. Upon arousal he had an episode of nausea and vomiting. Since then he states he feels back to his normal baseline. He is awake alert sitting up in no distress. Vital signs are stable. He has a tiny abrasion on his nose with no other injuries noted. He is on Coumadin for remote history of DVT so I ordered CT scans of his head and neck which are negative. CBC is unremarkable. BMP shows normal electrolytes but mild ANGELIQUE with BUN of 21, creatinine 1.51. It previously was 1.06. Glucose is 245 with no DKA. EKG is nonischemic and troponin is 9. INR is slightly subtherapeutic at 1.9. Due to his remote history of DVT I ordered a D-dimer and it is elevated so I ordered a follow-up CTA scan. There is no PE or dissection and no acute findings. After his IV fluids he remains hemodynamically stable is able to ambulate in the hallway and remained asymptomatic. I discussed the options of observation in the hospital versus outpatient follow-up with primary care and he prefers to go home. Return precautions discussed. I instructed him to call his warfarin prescriber for further instructions as a slightly low at 1.9. He was discharged in stable condition. Lab Data Attestation: I reviewed the patient's lab results. Labs: Laboratory Results - last 24 hr 09/27/24 09/27/24 09/27/24 12:09 14:00 14:15 WBC 9.5 RBC 4.66 Hgb 14.3 Hct 43.5 MCV 93.3 MCH 30.7 MCHC 32.9 RDW Std Deviation 43.3 RDW Coeff of Jaime 12.7 Plt Count 248 MPV 11.5 Immature Gran % (Auto) 0.300 Neut % (Auto) 73.7 H Lymph % (Auto) 14.0 L Wise % (Auto) 9.5 Eos % (Auto) 2.1 Baso % (Auto) 0.4 Absolute Neuts (auto) 7.0 Absolute Lymphs (auto) 1.33 Nucleated RBC % 0 PT 22.4 H INR 1.9 D-Dimer Quant (PE/DVT) 2.39 H* Sodium 138 Potassium 4.3 Chloride 105 Carbon Dioxide 23.0 Anion Gap 10 BUN 21 H Creatinine 1.51 H Estim Creat Clear Calc 43.00 Est GFR (MDRD) Af Amer 57 L Est GFR (MDRD) Non-Af 47 L BUN/Creatinine Ratio 13.9 Glucose 245 H Calcium 9.6 Troponin I High Sens 9 12 Urine Color Yellow Urine Clarity Clear Urine pH 5.0 Ur Specific [place] 1.010 Urine Protein 15 H Urine Glucose (UA) Normal Urine Ketones Negative Urine Occult Blood 10 H Urine Nitrite Negative Urine Bilirubin Negative Urine Urobilinogen Normal Ur Leukocyte Esterase 25 H Urine RBC 0-5 SEEN Urine WBC 0-5 SEEN Ur Squamous Epith Cells 0-5 SEEN Urine Bacteria RARE Urine Mucus 0 SEEN Radiography Diagnostic Testing: Clinical Impression(s) from Imaging Studies Brain CT 09/27/24 12:00 IMPRESSION: 1. No acute intracranial abnormalities. 2. Chronic white matter ischemic changes. Electronically Signed: Thanh Cardona MD at 13:01 EST , Cervical Spine CT 09/27/24 12:00 IMPRESSION: 1. No acute fracture of the cervical spine, craniocervical junction and cervicothoracic junction. 2. Minimal degenerative retrolisthesis of C7 on T1 and T1 on T2. Electronically Signed: Thanh Cardona MD at 13:10 EST , Chest X-Ray 09/27/24 12:30 IMPRESSION: No acute cardiopulmonary pathology and no significant interval change. Electronically Signed: Thanh Cardona MD at 13:25 EST , Chest CTA 09/27/24 13:40 IMPRESSION: No demonstrated pulmonary embolism or arterial dissection. Electronically Signed: Lowell Pineda MD at 14:35 EST , ED attending interpretation of 1-view chest x-ray shows normal heart size, no acute infiltrate. EKG Initial EKG: Attestation: I personally reviewed and interpreted this EKG as follows: Interpretation: Sinus Rhythm and No Acute Injury Pattern Comments: Normal sinus rhythm at 75 bpm Left axis deviation, no acute ischemic changes <Dr. Estevan Dominguez, DO - Last Filed: 09/28/24 01:45> [facility] MDM Narrative Medical decision making narrative: History gathered from: Patient, EMS Differential includes but not limited to orthostatic hypotension, cardiac arrhythmia, ACS, PE 84-year-old male was standing and felt lightheaded and then had a brief syncopal episode. Upon arousal he had an episode of nausea and vomiting. Since then he states he feels back to his normal baseline. He is awake alert sitting up in no distress. Vital signs are stable. He has a tiny abrasion on his nose with no other injuries noted. He is on Coumadin for remote history of DVT so I ordered CT scans of his head and neck which are negative. CBC is unremarkable. BMP shows normal electrolytes but mild ANGELIQUE with BUN of 21, creatinine 1.51. It previously was 1.06. Glucose is 245 with no DKA. EKG is nonischemic and troponin is 9. INR is slightly subtherapeutic at 1.9. Due to his remote history of DVT I ordered a D-dimer and it is elevated so I ordered a follow-up CTA scan. There is no PE or dissection and no acute findings. After his IV fluids he remains hemodynamically stable is able to ambulate in the hallway and remained asymptomatic. I discussed the options of observation in the hospital versus outpatient follow-up with primary care and he prefers to go home. Return precautions discussed. I instructed him to call his warfarin prescriber for further instructions as a slightly low at 1.9. He was discharged in stable condition. Supervisory Physician Note Patient was seen and examined with the Advanced Practice Provider. Nursing notes and vital signs have been reviewed. Pertinent old records have been reviewed. I agree with the essential elements of the FROILAN's history, physical exam, assessment, and plan. The differential diagnosis and management options were discussed with the FROILAN. I participated in determining and agree with the management, procedures, final impression and disposition as documented. See changes noted by me. Please see addendum or separate note for any additional details. 84-year-old male presents for evaluation after syncopal episode. 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 Unsure if true syncope. Patient denies any fever, chills, shortness of breath, chest pain, abdominal pain, dysuria. States that he did get nauseated during the event. States that he ate breakfast today as well as drank coffee but has not had any water or other fluids. Currently asymptomatic. Gen: A&O x3, NAD Head: Normocephalic, atraumatic Eyes: No sclera icterus, conjunctiva clear, PERRL, EOMI ENT: Moist mucous membranes Neck: Trachea midline, No JVD, no carotid bruit CV: RRR, no murmurs, no peripheral edema Resp: Lungs CTA BL, no w/r/c GI: Abd soft, non-distended, non-tender, no r/r/g Musc: Full ROM, no deformity Skin: Warm, dry Neuro: Alert, oriented, grossly intact, sensation intact Psych: Cooperative, appropriate mood and affect Patient currently asymptomatic. Vital stable. NS bolus ordered and imaging/laboratory workup ordered. CBC without leukocytosis or anemia. INR 1.9. Patient's D-dimer is elevated at 2.39. Given his history of blood clots with syncope will get CTA chest to assess for PE. BNP without significant electrolyte abnormality. Patient does have renal insufficiency with a creatinine of 1.51. This is up from November 2023. Patient states he has been eating and drinking well. Troponin unremarkable/flat x 2. UA negative for UTI. Chest x-ray without any acute abnormality. CT head and neck without traumatic injury. CTA chest negative for PE or dissection. Patient has remained asymptomatic here in the emergency department. He is hemodynamically stable. He was able to ambulate without difficulty. No clear etiology for patient's presyncope/syncopal episode at this time. He was given the option of admission for observation but declined. He would like to discharge home and follow-up outpatient with PCP. I do think this is reasonable. Return precautions were discussed. Patient was educated to drink plenty of fluids. He needs his creatinine rechecked outpatient. Follow-up with PCP. Impression: 1. Presyncope with possible syncope 2. Renal insufficiency Lab Data Labs: Laboratory Results - last 24 hr 09/27/24 09/27/24 09/27/24 12:09 14:00 14:15 WBC 9.5 RBC 4.66 Hgb 14.3 Hct 43.5 MCV 93.3 MCH 30.7 MCHC 32.9 RDW Std Deviation 43.3 RDW Coeff of Jaime 12.7 Plt Count 248 MPV 11.5 Immature Gran % (Auto) 0.300 Neut % (Auto) 73.7 H Lymph % (Auto) 14.0 L Wise % (Auto) 9.5 Eos % (Auto) 2.1 Baso % (Auto) 0.4 Absolute Neuts (auto) 7.0 Absolute Lymphs (auto) 1.33 Nucleated RBC % 0 PT 22.4 H INR 1.9 D-Dimer Quant (PE/DVT) 2.39 H* Sodium 138 Potassium 4.3 Chloride 105 Carbon Dioxide 23.0 Anion Gap 10 BUN 21 H Creatinine 1.51 H Estim Creat Clear Calc 43.00 Est GFR (MDRD) Af Amer 57 L Est GFR (MDRD) Non-Af 47 L BUN/Creatinine Ratio 13.9 Glucose 245 H Calcium 9.6 Troponin I High Sens 9 12 Urine Color Yellow Urine Clarity Clear Urine pH 5.0 Ur Specific [place] 1.010 Urine Protein 15 H Urine Glucose (UA) Normal Urine Ketones Negative Urine Occult Blood 10 H Urine Nitrite Negative Urine Bilirubin Negative Urine Urobilinogen Normal Ur Leukocyte Esterase 25 H Urine RBC 0-5 SEEN Urine WBC 0-5 SEEN Ur Squamous Epith Cells 0-5 SEEN Urine Bacteria RARE Urine Mucus 0 SEEN Radiography Diagnostic Testing: Clinical Impression(s) from Imaging Studies Brain CT 09/27/24 12:00 IMPRESSION: 1. No acute intracranial abnormalities. 2. Chronic white matter ischemic changes. Electronically Signed: Thanh Cardona MD at 13:01 EST Reading Location ID and State: [facility] / [place] , Service support , Cervical Spine CT 09/27/24 12:00 IMPRESSION: 1. No acute fracture of the cervical spine, craniocervical junction and cervicothoracic junction. 2. Minimal degenerative retrolisthesis of C7 on T1 and T1 on T2. Electronically Signed: Thanh Cardona MD at 13:10 EST , Chest X-Ray 09/27/24 12:30 IMPRESSION: No acute cardiopulmonary pathology and no significant interval change. Electronically Signed: Thanh Cardona MD at 13:25 EST , Chest CTA 09/27/24 13:40 IMPRESSION: No demonstrated pulmonary embolism or arterial dissection. 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, Acute kidney injury, Subtherapeutic international normalized ratio (INR), Dehydration Instructions: Causes of Syncope, ED Dehydration (Adult) Prescriptions: No Action nitroglycerin 0.4 mg tablet, sublingual 0.4 mg SUBLINGUAL Q5M PRN Patient Comments: X 3 aspirin [Adult Low Dose Aspirin] 81 mg tablet,delayed release (DR/EC) 81 mg PO QDAY isosorbide mononitrate 30 mg tablet extended release 24 hr 30 mg PO QDAY atorvastatin 80 mg tablet 80 mg PO QDAY metformin 500 mg tablet 500 mg PO .COMPLEX Rx Instructions: 500 mg PO 2 tabs in the am 1 tab at noon and 2 tabs in the evening warfarin [Coumadin] 10 mg tablet 5 mg PO DAILY glimepiride 2 mg tablet 2 mg PO DAILY donepezil 10 mg tablet PO DAILY Trulicity 0.75 mg/0.5 mL pen injector subcut QWEEK cholecalciferol (vitamin D3) 25 mcg (1,000 unit) capsule 25 mcg PO QDAY mecobalamin (vitamin B12) 2,500 mcg tablet,chewable PO DAILY ferrous sulfate 325 mg (65 mg iron) tablet 325 mg PO QDAY lisinopril 20 mg tablet 20 mg PO DAILY Qty: 90 3RF Primary Care Provider: Allyssa Alvarez Referrals: Allyssa Alvarez MD [Primary Care Provider] - Print Language: Mongolian Disposition Disposition: Home, Self Care Discharge Date/Time: 09/27/24 15:22
[2024-09-27] MEDS: 0.9% Normal Saline (1000mL) 1,000 ML 999 ML IV (12:20)
[2024-09-27 12:27] LABS: Absolute Lymphocyte Count 1.33 X10^3/uL (0.83-4.51); Basophil# 0.04 X10^3/uL; Basophil% 0.4 % (0-1); Eosinophils% 2.1 % (0-5); Hematocrit 43.5 % (40-54); Hemoglobin 14.3 g/dL (13.0-16.5); Lymphocyte # 1.33 X10^3/ul (0.83-4.51); Mean Corp Hgb Conc 32.9 g/dL (32-36); Mean Corpuscular Hgb 30.7 pg (27.0-32.0); Mean Corpuscular Volume 93.3 fL (80-94); Mean Platelet Vol. 11.5 fl (6.2-12.0); Monocyte% 9.5 % (0-10); NRBC Flagged by Analyzer 0 % (0-5); Neutrophil # 6.97 X10^3/uL (2.7-7.7); Neutrophil % 73.7 % (47-70); Platelet Count 248 K/mm3 (150-450); RBC Distribution Width CV 12.7 % (11.6-14.6); RBC Distribution Width SD 43.3 fl (35.1-43.9); Red Blood Count 4.66 M/mm3 (4.6-6.2); White Blood Count 9.5 K/mm3 (4.4-11.0)
--- NOTE | 2024-09-27 12:30 | RAD_ITS ---
EXAM: XR CHEST, 1 VIEW CLINICAL INDICATION: Dizzy. TECHNIQUE: Frontal view of the chest. COMPARISON: 07/24/2004 FINDINGS: LUNGS AND PLEURAL SPACES: Mild pulmonary hypoinflation. Small calcified granuloma near the left heart border. No suspicious infiltrates, consolidation or edema. No pneumothorax. No effusion. HEART: Borderline cardiomegaly. MEDIASTINUM: Central airways and mediastinal contour are unremarkable. BONES/JOINTS: Intact sternal wires. No acute fracture. SOFT TISSUES: Unremarkable. RAD/Chest 1 View (Portable) IMPRESSION: No acute cardiopulmonary pathology and no significant interval change. Electronically Signed: Thanh Cardona MD at 13:25 EST ,
[2024-09-27 12:38] LABS: International Normalized Ratio 1.9; Prothrombin Time (Protime)PT. 22.4 SECONDS (11.7-14.9)
[2024-09-27 13:00] LABS: Anion Gap 10 (5-15); BUN 21 mg/dL (7-18); BUN/Creat Ratio 13.9 RATIO (10-20); Calcium,Total 9.6 mg/dL (8.5-10.1); Chloride 105 mmol/L (98-107); Creatinine, Serum 1.51 mg/dL (0.70-1.30); EST Glomerular Filtration Rate 47 mL/min (>60); Est Glom Filt Rate - Afr Amer 57 mL/min (>60); Glucose 245 mg/dL (74-106); Potassium 4.3 mmol/L (3.5-5.1); Sodium Level 138 mmol/L (136-145); Troponin-I HS 9 pg/mL (3.0-78.0)
[2024-09-27 13:36] LABS: D-Dimer Quantitative (DVT/PE) 2.39 FEU/ug/m (0.27-0.49)
--- NOTE | 2024-09-27 13:40 | CT_ITS ---
EXAM: CT ANGIOGRAPHY CHEST WITHOUT AND WITH INTRAVENOUS CONTRAST CLINICAL INDICATION: rule out pe, syncope TECHNIQUE: Helically acquired angiography images were obtained of the chest without and with intravenous contrast. This CT exam was performed using one or more of the following dose reduction techniques: automated exposure control, adjustment of the mA and/or kV according to patient size, and/or use of iterative reconstruction technique. MIP reconstructed images were created and reviewed. CONTRAST: IV 75mL [id number] RADIATION DOSE: CTDIvol = 10.52 mGy, DLP = 558.61 mGy-cm COMPARISON: No relevant prior studies available. FINDINGS: PULMONARY ARTERIES: Unremarkable. No demonstrated pulmonary embolism or arterial dissection. AORTA: There is atherosclerotic calcification of the aortic arch with tortuosity and elongation of the aortic arch and descending thoracic aorta. Normal in caliber. No evidence of dissection. GREAT VESSELS OF AORTIC ARCH: Unremarkable. Normal in caliber. No evidence of dissection. LUNGS AND PLEURAL SPACES: Unremarkable. No mass. No consolidation or edema. No pleural effusion or thickening. No pneumothorax. HEART: There are calcifications of the coronary arteries. Heart size is normal. No pericardial effusion. MEDIASTINUM: Unremarkable. No mediastinal or hilar adenopathy. Esophagus is unremarkable. No hiatal hernia. THYROID: Unremarkable. No thyroid lesions. BONES/JOINTS: There are degenerative changes of the shoulders. There are multi-level degenerative changes of the thoracic spine. Median sternotomy wires. No suspicious lytic or blastic abnormality. OTHER FINDINGS: Post-processing of the images was performed, with axial imaging and 3D reconstruction. MIPS images were obtained. CT/CTA Chest W/WO Contrast IMPRESSION: No demonstrated pulmonary embolism or arterial dissection. Electronically Signed: Lowell Pineda MD at 14:35 EST ,
[2024-09-27 13:54] VITALS: BP 154/70; PULSE 69; RESP 17; O2SAT 95
[2024-09-27 14:18] LABS: Mucous, Urine 0 SEEN /hpf (<or=2+)
[2024-09-27 14:23] LABS: Color, Urine Yellow (Yellow); Glucose, Dipstick Normal (Normal); Ketone-Dipstick Negative (Negative); Leukocyte Esterase-Dipstick 25 /ul (Negative); Nitrite-Dipstick Negative (Negative); Occult Blood-Urine 10 /ul (Negative); Protein-Dipstick 15 mg/dl (Negative); Urine Bilirubin Dipstick Negative (Negative); Urine Clarity Clear (Clear); Urine Urobilinogen Normal (Normal)
[2024-09-27 14:23] LABS: Troponin-I HS 12 pg/mL (3.0-78.0)
[2024-09-27] MEDS: Famotidine 200 MG/20 ML MDV 20 MG in 0.9% Normal Saline (Pres. free 8 ML 300 MG IV (14:29)
[2024-09-27 14:40] LABS: Squamous Epithelial Cells - UA 0-5 SEEN /hpf (0-5)
[2024-09-27 14:41] LABS: Bacteria RARE /hpf (None Seen); Red Blood Cells-Urine 0-5 SEEN /hpf (0-5); White Blood Cells 0-5 SEEN /hpf (0-5)
[2024-09-27 15:21] VITALS: BP 142/79; PULSE 83; RESP 16; TEMP 36.4; O2SAT 99
== END 2024-09-27 15:22 | disposition home or self-care (01) ==
PROVIDERS: Physician Assistant; Emergency Provider Surgery; PCP Family Medicine; Visit Provider Surgery
DX: R55 Syncope and collapse (principal); E11.9 Type 2 diabetes mellitus without complications; N17.9 Acute kidney failure, unspecified; E86.0 Dehydration; I10 Essential (primary) hypertension; I25.10 Atherosclerotic heart disease of native coronary artery without angina pectoris; E78.5 Hyperlipidemia, unspecified; Z79.01 Long term (current) use of anticoagulants; S09.90XA Unspecified injury of head, initial encounter; S00.31XA Abrasion of nose, initial encounter; Z87.891 Personal history of nicotine dependence; Z95.1 Presence of aortocoronary bypass graft; Z86.718 Personal history of other venous thrombosis and embolism; W19.XXXA Unspecified fall, initial encounter
CPT/HCPCS: 70450; 71045; 71275; 72125; 80048; 81001; 84484; 85025; 85379; 85610; 93005; 96361; 96374; 99285; Q9967; A4216

== ENCOUNTER → 2024-11-27 | Outpatient (CLI) | payer MEDICARE, SELFPAY ==
[2024-11-27 12:38] LABS: Absolute Neutrophil Count 5.3 X10^3/uL (2.0-7.7); Basophil# 0.05 X10^3/uL; Basophil% 0.6 % (0-1); Eosinophil# 0.27 X10^3/uL; Eosinophils% 3.5 % (0-5); Hematocrit 40.2 % (40-54); Hemoglobin 13.4 g/dL (13.0-16.5); Lymphocyte % 16.9 % (19-41); Mean Corp Hgb Conc 33.3 g/dL (32-36); Mean Corpuscular Hgb 31.8 pg (27.0-32.0); Mean Corpuscular Volume 95.3 fL (80-94); Monocyte# 0.79 X10^3/uL; Monocyte% 10.2 % (0-10); NRBC Flagged by Analyzer 0 % (0-5); Neutrophil # 5.28 X10^3/uL (2.7-7.7); Neutrophil % 68.5 % (47-70); Platelet Count 257 K/mm3 (150-450); Red Blood Count 4.22 M/mm3 (4.6-6.2); White Blood Count 7.7 K/mm3 (4.4-11.0)
[2024-11-27 13:35] LABS: Microalbumin,Random Urine 99.6 mg/L (NO RANGE EST.); Microalbumin:Creatinine Ratio 463.3 mg/g CRE
[2024-11-27 19:49] LABS: ALB/GLOB Ratio 1.4 RATIO (0.9-2.4); AST(SGOT) 27 U/L (<=37); Alanine Aminotransfer ALT/SGPT 16 U/L (<=46); Albumin, Serum 3.9 g/dL (3.4-4.8); Alkaline Phosphatase 48 U/L (40-129); Anion Gap 12 (5-15); BUN 17 mg/dL (4-19); BUN/Creat Ratio 16.6 RATIO (10-20); Calcium,Total 8.9 mg/dL (7.6-11.0); Carbon Dioxide 23.1 mmol/L (21.0-32.0); Chloride 105 mmol/L (98-108); Cholesterol 124 mg/dL (<=200); Creatinine, Serum 1.04 mg/dL (0.70-1.20); EST Glomerular Filtration Rate 72 (>60); Globulin 2.8 g/dL (2.2-4.2); Glucose 115 mg/dL (70-99); High Density Lipoprotein 50 mg/dL; Low Density Lipoprotein Calc. 56 mg/dL; Potassium 4.2 mmol/L (3.3-5.1); Protein, Total 6.6 g/dL (5.9-8.4); Sodium Level 141 mmol/L (133-145); Total Bilirubin 0.54 mg/dL (0.00-1.30); Triglycerides 87 mg/dL; Very Low Density Lipoprotein 17 mg/dL (5-40); cholesterol:hdl ratio screen 2.47
[2024-11-27 22:16] LABS: Vitamin B12 1797 pg/mL (180-914)
== END | disposition home or self-care (01) ==
LOC: BFHLAB 10:53
PROVIDERS: PCP Family Medicine; Visit Provider Family Medicine
DX: Z00.00 Encounter for general adult medical examination without abnormal findings (principal); E11.9 Type 2 diabetes mellitus without complications; E53.8 Deficiency of other specified B group vitamins; I10 Essential (primary) hypertension
CPT/HCPCS: 36415; 80053; 80061; 82043; 82570; 82607; 85025

== ENCOUNTER → 2025-02-19 | Outpatient (CLI) | payer MEDICARE, SELFPAY ==
--- NOTE | 2025-02-19 09:30 | RAD_ITS ---
EXAM: XR Lumbosacral Spine Flexion/Extension Only, 2 or 3 Views CLINICAL INDICATION: DISC DEGENERATION TECHNIQUE: Lateral flexion/extension views of the lumbar spine and sacrum. COMPARISON: No relevant prior studies available. FINDINGS: VERTEBRAE: Moderate endplate degenerative changes of the visualized spine. Moderate facet arthropathy of L3-S1. Grade 1 retrolisthesis of L3 over L4 and L2 over L3 without significant change during flexion or extension. Mild anterior wedging deformity of L2, L1 and T 12 vertebral bodies, likely chronic. No acute fracture or significant dynamic instability. SACRUM/COCCYX: Unremarkable as visualized. No acute fracture. DISC SPACES: See above. SOFT TISSUES: Unremarkable. VASCULATURE: Scattered calcified atherosclerotic disease of aorta. RAD/L/S Spine Min 4 Views IMPRESSION: 1. No acute fracture or significant dynamic instability. 2. Degenerative changes as above. Reading Location: [facility]
== END | disposition home or self-care (01) ==
PROVIDERS: PCP Family Medicine; Referring Provider Anesthesiology Pain Medicine; Visit Provider Anesthesiology Pain Medicine
DX: M51.372 Other intervertebral disc degeneration, lumbosacral region with discogenic back pain and lower extremity pain (principal)
CPT/HCPCS: 72110

== ENCOUNTER → 2025-06-08 | Outpatient (CLI) | payer MEDICARE, SELFPAY ==
--- NOTE | 2025-06-08 12:25 | RAD_ITS ---
EXAM: XR Thoracic Spine, 2 Views CLINICAL INDICATION: PAIN TECHNIQUE: Frontal and lateral views of the thoracic spine. COMPARISON: No relevant prior studies available. FINDINGS: VERTEBRAE: Degenerative disc disease and facet arthropathy throughout the thoracic spine. Normal alignment. No acute fracture. DISC SPACES: See above. SOFT TISSUES: Unremarkable. RAD/Thoracic Spine 2 Views IMPRESSION: 1. No acute fracture. 2. Degenerative changes thoracic spine as described. 3. If symptoms persist, further evaluation with MRI is recommended. Reading Location: [id number]
== END | disposition home or self-care (01) ==
LOC: MTRAD 12:24
PROVIDERS: PCP Family Medicine; Referring Provider Clinical Nurse Specialist Adult Health; Visit Provider Clinical Nurse Specialist Adult Health
DX: M54.6 Pain in thoracic spine (principal)
CPT/HCPCS: 72070

== ENCOUNTER 2025-06-10 15:00 | Outpatient (RCR) | payer MEDICARE, SELFPAY ==
--- NOTE | 2025-05-12 11:08 | HP.PTEVAL_ITS ---
Patient's Visit Information Visit Information Visit Information: YOSI LOPEZ is a 85 year old M referred to Physical Therapy by Dr. Kelton Parson MD with a diagnosis of SPINAL STENOSIS WITH NEUROGENEIC CLAUDICATION ,DDD LUMAVR. Date of Evaluation: 05/12/25 Physical Therapist: Erik Shaw, PT, Cert MDT, OCS Visit Plan Frequency: 2x /Week Duration: 4 Weeks Plan: PT INTERVENTIONS DLS,POSTURAL EX'S ,LE FLEXABILITY ,ACTIVITY MODIFICATION AND BLE STRENGTHENING Subjective Subjective: This 85 y/o male presents to physical therapy with lumbar pain. Patient has had back pain and weakness in legs for ~ 6 month. Patient seen pain management had epidural injection which helped. Patient had x-rays showed Moderate facet arthropathy of L3-S1. Grade 1 retrolisthesis of L3 over L4 and L2 over L3 without significant change during flexion or extension. Mild anterior wedging deformity of L2, L1 and T 12 vertebral bodies, likely chronic. No pain me dication. Symmetrical lumbar pain described as ache. Aggravating walking/standing < 20mins . Alleviating siting . Denies paresthesia/tingling.- Bowel/bladder - . Sleeping good. Patient has no trauma. No treatment. Patient does have back pain years. Pateint condition affects QOL and function. Goals to decrease pain. VOCATION: retired [employer]: RETIRED Pain Bilateral Back: Pain Intensity (Out of 10): 1 Pain Intensity Range: 5 and 7 Objective Objective: POSTURE: mild forward posture GAIT: reciprocal pattern NEURO: denies paresthesia/tingling ,reflexes L3-4,L4-5,L5-S1 1/3 PALPATION: unremarkable MMT: quads/hams/hip 4/5 ,ankle 4/5 FLEXABILITY: hamstrings min tight Special Tests L/S Slump test left side: Negative L/S Slump test right side: Negative L/S Left Straight Leg Raise: Negative L/S Right Straight Leg Raise: Negative Lumbar Standing: Flexion - Mechanical Response: No effect Lumbar Standing: Flexion - Symptoms During Testing: No effect Lumbar Standing: Flexion - Symptoms After Testing: No effect Lumbar Standing: Extension - Mechanical Response: No effect Lumbar Standing: Extension - Symptoms During Testing: Increases Lumbar Standing: Extension - Symptoms After Testing: No worse Lumbar Standing: Right Side Glides - Mechanical Response: No effect Lumbar Standing: Right Side [place] - Symptoms During Testing: No effect Lumbar Standing: Right Side [place] - Symptoms After Testing: No effect Lumbar Standing: Left Side [place] - Mechanical Response: No effect Lumbar Standing: Left Side [place] - Symptoms During Testing: No effect Lumbar Standing: Left Side [place] - Symptoms After Testing: No effect Lumbar Lying: Flexion - Mechanical Response: No effect Lumbar Lying: Flexion - Symptoms During Testing: Decreases Lumbar Lying: Flexion - Symptoms After Testing: Better Lumbar Lying: Extension - Mechanical Response: No effect Lumbar Lying: Extension - Symptoms During Testing: No effect Lumbar Lying: Extension - Symptoms After Testing: No effect Balance/Special Test Scores Oswestry Low Back Score: 16 Goals Goal 1:: Patient to be I with HEP for back to manage pain Goal Time Frame: 4-6 Weeks Goal 2:: Patient to improve lumbar ROM for function of recovery for ADLS and put on shoes Goal Time Frame: 4-6 Weeks Goal 3:: Patient to improve back oswestry score by 5 points to improve QOL and fucntion Goal Time Frame: 4-6 Weeks Goal 4:: Patient to demonstrate 50% improvement with improved function and less pain. Goal Time Frame: 4-6 Weeks Rehabilitation Potential Physical Therapy Diagnosis: This patient has stenosis with weakness in legs along with back pain with walking/standing ,better with sitting ,worse with position thus benefit from skilled PT Rehabilitation Potential: Good Anticipated Interventions Patient/Client Instruction: Educate patient on: Condition and Plan of Care For the Purpose of:: To decrease pain, To increase ROM, To improve muscle performance and motor function, To improve ability to perform ADL's, To increase tolerance to activity/condition/position, To improve ability of physical actions for home/community/work/leisure, To improve health of tissue, To decrease soft tissue restriction, To increase flexibility/ROM and To improve tolerance to ADL's Therapeutic Exercise to Include: Strength training, Postural training, Flexibilty training and Dynamic Lumbar Stabilization Comment: BLE QUADS/HAMS/HIP For the Purpose of:: To decrease pain, To increase ROM, To improve muscle performance and motor function, To improve ability to perform ADL's, To increase tolerance to activity/condition/position, To improve ability of physical actions for home/community/work/leisure, To improve health of tissue, To decrease soft tissue restriction, To increase flexibility/ROM and To improve tolerance to ADL's TENS: Yes IF ES: Yes Cryotherapy (ice pack, ice massage): Yes Thermo therapy (hot pack): Yes Ultrasound (thermal/non thermal): Yes For the Purpose of:: To decrease pain, To improve nutrient delivery to tissue and To increase oxygenation perfusion Text: Thank you for the opportunity to evaluate your patient. For Medicare and Medicare HMO plans, please review the plan of care and approve it. It will need to be FAXED BACK to us at [phone] for Medicare purposes. For Medicare only, by signing this I certify the plan of care. Please let me know if there are questions or concerns regarding this plan of care. Physician Signature:____ Date:
--- NOTE | 2025-06-10 15:40 | HP.PTDCSUM ---
Discharge Summary D/C summary: It has been my pleasure to treat YOSI LOPEZ referred by Dr. Kelton aPrson MD, with the diagnosis of SPINAL STENOSIS WITH NEUROGENEIC CLAUDICATION ,DDD LUMAVR for a total of 9 visit(s). Discharge Date: 06/10/25 Please see the following information for a summary of their discharge status. Subjective Subjective: Doing better with strengthening walking not as much 20mins pain states -standing 20 mins like cooking at kitchen RTD pain management Pain Bilateral Back: Pain Intensity (Out of 10): 0 Overall Improvement % Improvement: 100 Objective Objective/Function: POSTURE: mild forward posture GAIT: reciprocal pattern NEURO: denies paresthesia/tingling ,reflexes L3-4,L4-5,L5-S1 1/3 PALPATION: unremarkable MMT: quads/hams/hip 4/5 ,ankle 4/5 FLEXABILITY: hamstrings min tight Goals Goal 1:: Patient to be I with HEP for back to manage pain Goal Progress: Goal Met Goal 2:: Patient to improve lumbar ROM for function of recovery for ADLS and put on shoes Goal Progress: Goal Met Goal 3:: Patient to improve back oswestry score by 5 points to improve QOL and fucntion Goal Progress: Goal Met Goal 4:: Patient to demonstrate 50% improvement with improved function and less pain. Goal Progress: Goal Met Plan Plan: D/C TO HEP D/C Information Discharge Comments: HEP d/c sentence: If there are questions or concerns regarding this patient's physical therapy, please feel free to call me at [phone]. Thank you for the referral of this patient. Sincerely, Erik Shaw, PT, Cert MDT, OCS Balance/Gait/Functional tests Balance/Special Test Scores Oswestry Low Back Score: 5 Improvement % Improvement: 100
== END 2025-06-10 19:00 | disposition home or self-care (01) ==
LOC: PT 15:00
PROVIDERS: PCP Family Medicine; Referring Provider Anesthesiology Pain Medicine; Visit Provider Anesthesiology Pain Medicine
DX: M48.062 Spinal stenosis, lumbar region with neurogenic claudication (principal); M51.372 Other intervertebral disc degeneration, lumbosacral region with discogenic back pain and lower extremity pain
CPT/HCPCS: 97110; 97162; 97530